=== PATIENT | female | born 1945 | race Caucasian/White ===

== ENCOUNTER 2021-06-16 13:18 | Outpatient (REF) | payer MEDICARE, OTHER, SELFPAY ==
--- NOTE | ~2021-06-16 | MM_ITS ---
EXAMINATION: MM SCREENING DIGITAL BREAST TOMOSYNTHESIS, BILATERAL CLINICAL INFORMATION: Screening. Asymptomatic. The lifetime risk of breast cancer based on the Tyrer-Cuzick Model is 2%. COMPARISON: Mammography: 06/15/2020, 06/05/2019, 05/20/2018 TECHNIQUE: Digital breast tomosynthesis is performed in both the craniocaudal and mediolateral oblique views along with computer-aided detection (CAD). Synthesized 2D images are generated from the tomosynthesis. FINDINGS: There are scattered areas of fibroglandular density (ACR BI-RADS breast composition Category b). There are no significant masses, abnormal calcifications, or other abnormalities. Parenchymal pattern borders on predominantly fatty. There is no significant changes from prior exams. The axilla and skin contours are unremarkable. MM/MM tomosynthesis screening BI IMPRESSION: No mammographic evidence of malignancy. ASSESSMENT: BI-RADS 1: Negative RECOMMENDATION: Routine annual mammography screening. This patient's information was entered into a reminder system with a target due date for their next mammogram.
== END 2021-06-16 13:19 | disposition home or self-care (01) ==
LOC: HO.MAMMO 13:18
PROVIDERS: PCP Internal Medicine; Visit Provider Internal Medicine
DX: Z12.31 Encounter for screening mammogram for malignant neoplasm of breast (principal)
CPT/HCPCS: 77063; 77067

== ENCOUNTER 2022-06-17 13:13 | Outpatient (REF) | payer MEDICARE, OTHER, SELFPAY ==
--- NOTE | ~2022-06-17 | MM_ITS ---
EXAMINATION: MM SCREENING DIGITAL BREAST TOMOSYNTHESIS, BILATERAL CLINICAL INFORMATION: Screening. Asymptomatic. The lifetime risk of breast cancer based on the Tyrer-Cuzick Model is 2.0%. COMPARISON: Mammography: June 16, 2021 and studies dating back to February 15, 2014 TECHNIQUE: Digital breast tomosynthesis is performed in both the craniocaudal and mediolateral oblique views along with computer-aided detection (CAD). Synthesized 2D images are generated from the tomosynthesis. FINDINGS: There are scattered areas of fibroglandular density (ACR BI-RADS breast composition Category b). There are no significant masses, abnormal calcifications, or other abnormalities. MM/MM tomosynthesis screening BI IMPRESSION: No significant changes from prior exam. ASSESSMENT: BI-RADS 1: Negative RECOMMENDATION: Routine annual mammography screening. This patient's information was entered into a reminder system with a target due date for their next mammogram.
== END 2022-06-17 13:14 | disposition home or self-care (01) ==
LOC: HO.MAMMO 13:13
PROVIDERS: Visit Provider Internal Medicine
DX: Z12.31 Encounter for screening mammogram for malignant neoplasm of breast (principal)
CPT/HCPCS: 77063; 77067

== ENCOUNTER 2023-06-21 12:50 | Outpatient (REF) | payer MEDICARE, OTHER, SELFPAY ==
--- NOTE | ~2023-06-21 | MM_ITS ---
EXAMINATION: MM SCREENING DIGITAL BREAST TOMOSYNTHESIS, BILATERAL CLINICAL INFORMATION: Screening. Asymptomatic. COMPARISON: Mammography: This study is compared to prior exams dating back to 2019. TECHNIQUE: Digital breast tomosynthesis is performed in both the craniocaudal and mediolateral oblique views along with computer-aided detection (CAD). Synthesized 2D images are generated from the tomosynthesis. FINDINGS: The breasts are almost entirely fatty (ACR BI-RADS breast composition Category a). There are no significant masses, abnormal calcifications, or other abnormalities. MM/MM tomosynthesis screening BI IMPRESSION: No mammographic evidence of malignancy. ASSESSMENT: BI-RADS BI-RADS 1 - Negative RECOMMENDATION: Routine annual mammography screening. 1 year F/U This examination should not preclude the clinical evaluation of a suspicious palpable abnormality. This patient's information was entered into a reminder system with a target due date for their next mammogram.
== END 2023-06-21 12:51 | disposition home or self-care (01) ==
LOC: HO.MAMMO 12:50
PROVIDERS: PCP Internal Medicine; Visit Provider Internal Medicine
DX: Z12.31 Encounter for screening mammogram for malignant neoplasm of breast (principal)
CPT/HCPCS: 77063; 77067

== ENCOUNTER → 2023-06-21 13:00 | Outpatient (BNV) | payer MEDICARE, OTHER, SELFPAY | PROVIDERS: PCP Internal Medicine; Visit Provider Radiology Diagnostic Radiology | DX: Z12.31 Encounter for screening mammogram for malignant neoplasm of breast (principal) | CPT/HCPCS: 77063; 77067 ==

== ENCOUNTER 2024-07-21 13:20 | Outpatient (REF) | payer MEDICARE, OTHER, SELFPAY ==
--- NOTE | ~2024-07-21 | MM_ITS ---
EXAMINATION: MM SCREENING DIGITAL BREAST TOMOSYNTHESIS, BILATERAL CLINICAL INFORMATION: Screening. Asymptomatic. COMPARISON: Mammography: Comparison is made with available priors TECHNIQUE: Digital breast mammography with tomosynthesis is performed in both the craniocaudal and mediolateral oblique views along with computer-aided detection (CAD). FINDINGS: There are scattered areas of fibroglandular density (ACR BI-RADS breast composition Category b). There are no significant masses, abnormal calcifications, or other abnormalities. MM/MM tomosynthesis screening BI IMPRESSION: No mammographic evidence of malignancy. ASSESSMENT: BI-RADS BI-RADS 1 - Negative RECOMMENDATION: Routine annual mammography screening. 1 year F/U This examination should not preclude the clinical evaluation of a suspicious palpable abnormality. This patient's information was entered into a reminder system with a target due date for their next mammogram. Electronically signed by: Corinna De La Cruz DO 08/02/2024 03:17 PM EDT
== END 2024-07-21 13:21 | disposition home or self-care (01) ==
LOC: HO.MAMMO 13:20
PROVIDERS: PCP Internal Medicine; Visit Provider Internal Medicine
DX: Z12.31 Encounter for screening mammogram for malignant neoplasm of breast (principal)
CPT/HCPCS: 77063; 77067

== ENCOUNTER → 2024-07-21 13:45 | Outpatient (BNV) | payer MEDICARE, SELFPAY | PROVIDERS: PCP Internal Medicine; Visit Provider Internal Medicine | DX: Z12.31 Encounter for screening mammogram for malignant neoplasm of breast (principal) | CPT/HCPCS: 77063; 77067 ==

== ENCOUNTER 2025-07-24 12:35 | Outpatient (REF) | payer MEDICARE, OTHER, SELFPAY ==
--- OUTSIDE RECORDS SUMMARY | 2025-07-20 16:30 | XMS_ITS | Encounter Summary ---
Author Organization [facility] Address [address] [place] [id number] Phone Care Team Providers Care Extras Casting Director Name Role Phone Howard Lorenzo MD Unavailable [phone] Howard Lorenzo MD Primary Care Provider [phone] Sophia Steve DPM, Erik Unavailable Maddi Dinh OD Unavailable Abiola Cedeño MD Unavailable [phone] Reason for Referral * MRI/CAT Scan - Authorized Specialty Diagnoses / Procedures Referred By Marc kirkpatrick Referred To Contact Radiology Diagnoses Left lower quadrant abdominal mass Adrenal mass, left Procedures CT Abdomen/Pelvis Howard Lorenzo MD [address] [place] [address] Phone: tel: fax: [email or web address] Referral ID Status Reason Start Date Expiration Date V isits Requested Visits Authorized [id number] Authorized 07/20/2025 07/23/2026 1 1 Reason for Visit * Reason Comments Follow-up 3 month f/u Abdominal Pain LLQ pain intermitten t for 3 weeksYesterday pain level at 8. Encounter Details Date Type Department Care Team (Latest Contact Info) Description 07/20/2025 4:30 PM EDT Office Visit [facility] Internal Medicine [address] [place] [address] Howard Lorenzo MD [address] [place] [address] [email or web address] Need for prophylactic vaccination and inoculation against influenza (Primary Dx); Type 2 diabetes mellitus with diabetic polyneuropathy, with long-term current use of insulin; Essential hypertension; Nocturia; Left lower quadrant abdominal mass; Adrenal mass, left Social History Tobacco Use Types Packs/Day Years Used Date Smoking Tobacco: Former Cigarettes 1 22 11 965 - 10/25/1993 Passive Smoke Exposure: Past Smokeless Tobacco: Never Comments:quit over 25 years ago Alcohol Use Standard Drinks/Week Comments Not Currently 0 (1 standard drink = 0.6 oz pure alcohol) none since diagnosed with diabetes close to 39 y/o Education Answer Date Recorded Are you interested in more education? Not on felecia e 02/19/2023 Are you concerned about learning? Not on file 02/19/2023 No 02/19/2023 No 02/19/2023 Digital Access Answer Date Recorded No 03/16/2023 No 03/16/2023 Reliable internet access at home? Not on file 03/16/2023 Device with a working camera? Not on file Intimate Partner Violence Answer Date R ecorded Denied Basic Needs Not on file 04/23/2025 In the past 12 months have y ou been in a relationship with a person who hurts, threatens, or tries to control you? No 04/23/2025 Worried food would run out Not on file 04/23 In the past 12 months have y ou been in a relationship with a person who hurts, threatens, or tries to control you? No 04/23/2025 Comments No Sex and Gender Information Value Date Recorded Sex Assigned at Female 01/12/2024 10:17 AM EDT Legal Sex Female 10:09 PM EDT Gender Identity Female 01/12/2024 10:17 AM EDT Sexual Orientation Straight 03/05/2022 7: 25 PM EDT documented as of this encounter Last Filed Vital Signs Vital Sign Reading Time Taken Comments Blood Pressure 145/74 07/20/2025 5:52 PM EDT Pulse 73 07/20/2025 4:42 PM EDT Temperature 37.4 C (99.4 F) 07/20/2025 4:42 PM EDT Respiratory Rate 28 07/20/2025 4:42 PM EDT Oxygen Saturation 99% 07/20/2025 4:42 PM EDT Inhaled Oxygen Concentration - - Weight 65.2 kg (143 lb 12.8 oz) 07/20/2025 4:42 PM EDT Height 154.3 cm (5' 0.75 ) 07/20/2025 4:42 PM ED T Body Mass Index 27.4 07/20/2025 4:42 PM EDT documented in this encounter Progress Notes * Howard Lorenzo MD - 07/20/2025 4:30 PM EDT Subjective Vida Bass is a 80 y.o. female. History of Present Illness HPI: Patient enters for a follow up visit she has Diabetes Type II and monitors her glucose as directed. Her recent hemoglobin A1C was 8.2. She has lost 8 pounds in 1 years. She has been having some left lower quadrant pain for the past weeks. The pain comes and goes. No blood in her stool. She had a fall outside. She doesn't fall inside. She has a walker but doesn't use it. Her blood pressure was elevated today in the office 145/74. No headaches or chest pains. She had a 2.2cm left adrenal adenoma seen on a CT scan last year. It showed bronchiectasis in her right lower lobe. She has a solid 4mm pulmonary nodule in left lower lobe and right upper lobe. She has a 3mm nodule in the right lower lobe and left upper lobe. She also has a 6mm ground glass nodule in the left lower lobe. She has a 5mm ground glass nodule in the left lower lobe. Current Outpatient Medications Ordered in [facility] Medication Sig blood-glucose meter kit 1 each by Other route daily. Use as instructed Indications: Freestyle Lite glucometer FREESTYLE CARSON 2 READER 1 each by Miscellaneous route as needed for other (free text field). F/b Leonora Blake NP from [facility] diabetes center. FREESTYLE CARSON 2 SENSOR kit Inject 1 each under the skin every 14 (fourteen) days. DX:E11.42 insulin pen needles, disposable, 32 gauge x 5/32 Ndle 1 each by Miscellaneous route as needed. DX:E11.42 naproxen sodium (ALEVE) 220 MG tablet Take 2 tablets by mouth 2 (two) times a day as needed. simvastatin (ZOCOR) 40 MG tablet Take 1 tablet (40 mg total) by mouth nightly at bedtime. TRADJENTA 5 mg Tab Take 1 tablet (5 mg total) by mouth daily. TRESIBA FLEXTOUCH U-100 injection pen Inject up to 20 units daily DX:E11.42 alcohol PadM use tid for insulin and testing (Patient not taking: Reported on 07/20/2025) Review of Systems Denies headaches/chest pains Objective Physical Exam BP (!) 145/74 (BP Location: Right arm, Patient Position: Sitting, Cuff Size: Medium) Pulse 73 Temp 37.4 ??C (99.4 ??F) (Oral) Resp 28 Ht 154.3 cm (5' 0.75 ) Wt 65.2 kg (143 lb 12.8 oz) LMP (LMP Unknown) SpO2 99% BMI 27.40 kg/m?? CONSTITUTIONAL: Appears well- developed and well nourished. Cooperative, patient is alert. HEENT:PERRTL, EOM intact, fundi benign, TM's clear, throat clear. NECK: supple, no thyroid megaly, no adenopathy. LUNGS: clear to A&P,no wheezing/rhonichi/rales. HEART: RRR S1S2 without murmurs, rubs or gallops. ABDOMEN: bowel sounds: normal, soft non tender without masses. Mild tenderness left lower quadrant to palpation. No rebound tenderness. EXTREMITIES: without edema, clubbing or cyanosis. Assessment & Plan 1. Type 2 diabetes mellitus with diabetic polyneuropathy, with long-term current use of insulin cont med - Comprehensive metabolic panel - CBC and differential - Hemoglobin A1c - TSH with reflex - Urinalysis w/reflex Urine Culture 3. Essential hypertension pt to monitor bp at home and call with readings. She stopped taking Losartan several weeks ago. - Comprehensive metabolic panel - CBC and differential - TSH with reflex - Urinalysis w/reflex Urine Culture 4. Nocturia - Urinalysis w/reflex Urine Culture 5. Left lower quadrant abdominal mass were going to get lab work and a CT scan - Lipase - CT Abdomen/Pelvis 6. Adrenal mass, left - CT Abdomen/Pelvis I obtained verbal consent from the patient or their proxy to record this visit for purposes of producing a draft of the encounter documentation. documented in this encounter Plan of Treatment Upcoming Encounters Date Type Department Care Team (Late st Contact Info) Description 09/29/2025 1:30 PM EST Appointment [facility], [address] [address] Howard Lorenzo MD [address] [place] [address] 11/14/2025 1:30 PM EST Office Visit [facility] Internal Medicine [address] [place] [address] Howard Lorenzo MD [address] [place] [address] 11/15/2025 12:30 PM EST Office Visit [facility] [address] [place] [phone] Leonora Ro CNP [address] [place] [phone] 03/11/2026 2:00 PM EDT Office Visit [facility] Endocrinology [place] [address] [place] [phone] Carline Chavez MD [address] [place] [phone] Scheduled Orders Name Type Priority Associated Diagnoses Orde r Schedule CT Abdomen/Pelvis Imaging Routine Left lower quadrant abdominal mass Adrenal mass, left Expected: 08/03/2025, Expires: 10/19/2025 documented as of this encounter Results * (ABNORMAL) Urinalysis w/reflex Urine Culture (07/23/2025 9:57 AM EDT) COLOR STRAW(A) Yellow [facility] CLARITY Clear [facility] GLUCOSE Negative Negative [facility] BILI Negative Negative [facility] KETONES Negative Negative [facility] SPECIFIC GRAVITY 1.010 1.005 - 1.030 [facility] BLOOD Negative Negative [facility] PH 7.0 5.0 - 8.0 [facility] Protein-UA Negative Negative [facility] NITRITE Positive(A) Negative [facility] Leukocyte esterase, ur 1+(A) Negative [facility] Urine (Urine) 07/23/2025 9:5 7 AM EDT 07/23/2025 10:02 AM EDT us Howard Lorenzo MD URINE ORDERABLES Final Result Performing Organization Address [facility] Co de Phone Number [address] [address] * Lipase (07/23/2025 9:54 AM EDT) LIPASE 17 16 - 63 U/L [facility] Blood 07/23/2025 9:54 AM EDT 07/23/2025 9:57 AM EDT us Howard Lorenzo MD LAB BLOOD ORDERABLES Final Re sult Performing Organization Address [facility]/ZIP Co de Phone Number [address] [address] * TSH with reflex (07/23/2025 9:54 AM EDT) TSH 1.45 0.27 - 4.20 uIU/mL [facility] Blood 07/23/2025 9:54 AM EDT 07/23/2025 9:57 AM EDT us Howard Lorenzo MD LAB BLOOD ORDERABLES Final Re sult [address] [address] * (ABNORMAL) Hemoglobin A1c (07/23/2025 9:54 AM EDT) HEMOGLOBIN A1C 8.1(H) 4.3 - 5.8 % [facility] Blood 07/23/2025 9:54 AM EDT 07/23/2025 9:57 AM EDT us Howard Lorenzo MD LAB BLOOD ORDERABLES Final Re sult Performing Organization Address City/[facility]/ZIP Co de Phone Number [address] [address] * CBC and differential (07/23/2025 9:54 AM EDT) WBC 9.96 4.00 - 11.00 K/uL [facility] RBC 4.60 4.00 - 5.20 M/uL [facility] HGB 13.6 12.0 - 16.0 g/dL [facility] HCT 39.8 36.0 - 46.0 % [facility] PLT 299 150 - 450 K/uL [facility] MCV 86.5 80.0 - 100.0 fL [facility] MCH 29.6 27.0 - 31.0 pg [facility] MCHC 34.2 32.0 - 36.0 g/dL [facility] RDW 12.8 11.5 - 14.5 % [facility] MPV 9.9 8.4 - 12.0 fL [facility] NRBC 0.00 0.00 /100 WBCs [facility] ABSOLUTE NRBC 0.00 0.00 K/uL [facility] DIFF METHOD Auto [facility] NEUTS 66.6 48.0 - 76.0 % [facility] LYMPHS 20.9 18.0 - 41.0 % [facility] MONOS 8.9 4.0 - 11.0 % [facility] EOS 2.0 0.0 - 5.0 % [facility] BASOS 1.3 0.0 - 1.5 % [facility] Granulocytes, immature (%) 0.3 0.0 - 0.9 % [facility] ABSOLUTE NEUTS 6.63 1.92 - 7.60 K/uL [facility] ABSOLUTE LYMPHS 2.08 0.72 - 4.10 K/uL [facility] ABSOLUTE MONOS 0.89 0.16 - 1.10 K/uL [facility] ABSOLUTE EOS 0.20 0.00 - 0.50 K/uL [facility] ABSOLUTE BASOS 0.13 0.00 - 0.15 K/uL [facility] Granulocytes, immature 0.03 0.00 - 0.09 K/uL [facility] Blood 07/23/2025 9:54 AM EDT 07/23/2025 9:57 AM EDT us Howard Lorenzo MD LAB BLOOD ORDERABLES Final Re sult [address] [address] * (ABNORMAL) Comprehensive metabolic panel (07/23/2025 9:54 AM EDT) SODIUM 139 133 - 146 mmol/L [facility] POTASSIUM 4.2 3.3 - 5.1 mmol/L [facility] CHLORIDE 101 96 - 108 mmol/L [facility] CO2 26 21 - 35 mmol/L [facility] BUN 10 6 - 19 mg/dL [facility] CREATININE 0.60 0.5 - 1.5 mg/dL [facility] GLUCOSE 130(H) 70 - 99 mg/dL [facility] ALBUMIN 4.4 3.9 - 4.8 g/dL [facility] TOTAL PROTEIN 7.0 6.5 - 8.0 g/dL [facility] CALCIUM 9.9 8.4 - 10.3 mg/dL [facility] ALKALINE PHOSPHATASE 76 39 - 117 U/L [facility] TOTAL BILIRUBIN 0.4 0.0 - 1.2 mg/dL [facility] AST 18 0 - 37 U/L [facility] ALT 6 0 - 40 U/L [facility] GLOBULIN 2.6 1 - 4.8 g/dL [facility] EGFR 90 >59 mL/min/1.7 3m2 [facility] Comment:Estimated glomerular filtration rate calculated using the CKD-EPI refit equation. ANION GAP 16 10 - 20 mmol/L [facility] Blood 07/23/2025 9:54 AM EDT 07/23/2025 9:57 AM EDT us Howard Lorenzo MD LAB BLOOD ORDERABLES Final Re sult [facility] [address] [place] [address] documented in this encounter Visit Diagnoses Diagnosis Need for prophylactic vaccination and inoculation against influenza- Primary Type 2 diabetes mellitus with diabetic polyneuropathy, with long-term current use of insulin Essential hypertension Unspecified essential hypertension Nocturia Left lower quadrant abdominal mass Abdominal or pelvic swelling, mass, or lump, left lower quadrant Adrenal mass, left Unspecified disorder of adrenal glands documented in this encounter Additional Health Concerns Assessment Noted Time PHQ-9 Depression Total Score: 15 025 3:51 PM EDT PHQ-2 Depression Total Score: 3 07/20/20 25 3:51 PM EDT documented as of this encounter Care Teams Extras Casting Director Relationship Specialty Start Date End Date Howard Lorenzo MD [address] [place] [address] [email or web address] PCP - General Internal Medicine 09/13/17 Howard Lorenzo MD [address] [place] [address] Insurance Assigned Provider 01/29/24 Anibal Cortes DPM [address] [place] [id number] Podiatry 04/29/20 Maddi Dinh OD [address] [place] [phone] Optometry 04/29/20 Abiola Cedeño MD [address] [place] [address], [address] [place] [address] Internal Medicine 12/14/22 documented as of this encounter Additional Source Comments The information contained in this document represents components of the legal health record. It is not the complete legal health record.[facility]
--- OUTSIDE RECORDS SUMMARY | 2025-07-23 09:57 | XMS_ITS | Encounter Summary ---
Author Organization [facility] Address Formerly [facility], [facility] [employer] [facility] [address] [place] [address] Phone Care Team Providers Care Workers Compensation Paralegal Name Role Phone Howard Lorenzo MD Unavailable Howard Lorenzo MD Primary Care Provider [phone] Sophia Steve DPM, Erik Unavailable Maddi Dinh OD Unavailable Abiola Cedeño MD Unavailable [phone] Encounter Details Date Type Department Care Team (Latest Contact Info) Description 07/23/2025 9:57 AM EDT - 07/23/2025 11:59 PM EDT Hospital Encounter [facility] [address] [place], [place] [phone] Howard Lorenzo MD [address] [place], [place] [phone] [email or web address] Discharge Disposition: Home or Self Care Social History Tobacco Use Types Packs/Day Years Used Date Smoking Tobacco: Former Cigarettes 1 29 1 965 - 10/25/1993 Passive Smoke Exposure: Past [...] PM EDT documented as of this encounter Medications at Time of Discharge alcohol PadM use tid for insulin and testing 03/22/20 14 blood-glucose meter kitIndications:Freestyle Lite glucometer 1 each by Other route daily. Use as instructed Indications: Freestyle Lite glucometer FREESTYLE CARSON 2 READER 1 each by Miscellaneous route as needed for other (free text field). F/b Leonora Blake NP from [facility] diabetes center. 10/12/20 22 FREESTYLE CARSON 2 SENSOR kit Inject 1 each under the skin every 14 (fourteen) days. DX:E11.42 2 kit 3 02/09/20 24 insulin pen needles, disposable, 32 gauge x 532 NdleIndications:Type 2 diabetes mellitus with diabetic polyneuropathy, with long-term current use of insulin 1 each by Miscellaneous route as needed. DX:E11.42 30 each 11 05/28/20 22 naproxen sodium (ALEVE) 220 MG tablet Take 2 tablets by mouth 2 (two) times a day as needed. simvastatin (ZOCOR) 40 MG tabletIndications:Pure hypercholesterolemia Take 1 tablet (40 mg total) by mouth nightly at bedtime. 90 tablet 3 04/23/20 TRADJENTA 5 mg TabIndications:Type 2 diabetes mellitus with diabetic polyneuropathy, with long-term current use of insulin Take 1 tablet (5 mg total) by mouth daily. 90 tablet 3 05/14/20 TRESIBA FLEXTOUCH U-100 injection penIndications:Type 2 diabetes mellitus with diabetic polyneuropathy, with long-term current use of insulin Inject up to 20 units daily DX:E11.42 30 mL 3 05/14/20 documented as of this encounter Plan of Treatment Upcoming Encounters Date Type Department Care Team (Late st Contact Info) Description 09/29/2025 1:30 PM EST Appointment [facility], [address] [address] Howard Lorenzo MD [address] [place] [address] 11/14/2025 1:30 PM EST Office Visit [facility] [place] Internal Medicine [address] [place] [address] Howard Lorenzo MD [address] [place] [address] 11/15/2025 12:30 PM EST Office Visit [facility] [address] [place] [address] Leonora Ro CNP [address] [address] [email or web address] 03/11/2026 2:00 PM EDT Office Visit [facility] Endocrinology [place] [address] [place] [phone] Carline Chavez MD [address] [place] [address] [address] [place] [address] [email or web address] documented as of this encounter Procedures Procedure Name Priority Date/Time Associated Diagnosis Comments URINALYSIS W/REFLEX URINE CULTURE Routine 07/23/2025 9:57 AM EDT Type 2 diabetes mellitus with diabetic polyneuropathy, with long-term current use of insulin Essential hypertension Nocturia URINE SEDIMENT Routine 07/23/2025 9:57 AM EDT COMPREHENSIVE METABOLIC PANEL Routine 07/23/2025 9:54 AM EDT Type 2 diabetes mellitus with diabetic polyneuropathy, with long-term current use of insulin Essential hypertension TSH WITH REFLEX Routine 07/23/2025 9:54 AM EDT Type 2 diabetes mellitus with diabetic polyneuropathy, with long-term current use of insulin Essential hypertension CBC AND DIFFERENTIAL Routine 07/23/2025 9:54 AM EDT Type 2 diabetes mellitus with diabetic polyneuropathy, with long-term current use of insulin Essential hypertension LIPASE Routine 07/23/2025 9:54 AM EDT Left lower quadrant abdominal mass HEMOGLOBIN A1C Routine 07/23/2025 9:54 AM EDT Type 2 diabetes mellitus with diabetic polyneuropathy, with long-term current use of insulin documented in this encounter Results * (ABNORMAL) Urine sediment (07/23/2025 9:57 AM EDT) WBC 5-10(A) NONE SEEN /hpf [facility] RBC 0-2(A) NONE SEEN /hpf [facility] URINE EPITHELIAL 0-4(A) NONE SEEN [facility] MUCUS Trace(A) NONE SEEN /hpf [facility] BACTERIA 1+(A) NONE SEEN /hpf [facility] 07/23/2025 9:57 AM EDT 07/23/2025 10:02 AM EDT us Howard Lorenzo MD URINE ORDERABLES Final Result [address] [address] * (ABNORMAL) Urinalysis w/reflex Urine Culture (07/23/2025 9:57 AM EDT) COLOR STRAW(A) Yellow [facility] CLARITY Clear [facility] GLUCOSE Negative Negative [facility] BILI Negative Negative [facility] KETONES Negative Negative [facility] SPECIFIC GRAVITY 1.010 1.005 - 1.030 [facility] BLOOD Negative Negative [facility] PH 7.0 5.0 - 8.0 [facility] Protein-UA Negative Negative [facility] NITRITE Positive(A) Negative [facility] Leukocyte esterase, ur 1+(A) Negative [facility] Urine (Urine) 07/23/2025 9:5 7 AM EDT 07/23/2025 10:02 AM EDT us Howard Lorenzo MD URINE ORDERABLES Final Result [address] [address] * (ABNORMAL) Comprehensive metabolic panel (07/23/2025 9:54 AM EDT) SODIUM 139 133 - 146 mmol/L [facility] POTASSIUM 4.2 3.3 - 5.1 mmol/L [facility] CHLORIDE 101 96 - 108 mmol/L [facility] CO2 26 21 - 35 mmol/L [facility] BUN 10 6 - 19 mg/dL [facility] CREATININE 0.60 0.5 - 1.5 mg/dL [facility] GLUCOSE 130(H) 70 - 99 mg/dL [facility] ALBUMIN 4.4 3.9 - 4.8 g/dL [facility] TOTAL PROTEIN 7.0 6.5 - 8.0 g/dL [facility] CALCIUM 9.9 8.4 - 10.3 mg/dL [facility] ALKALINE PHOSPHATASE 76 39 - 117 U/L [facility] TOTAL BILIRUBIN 0.4 0.0 - 1.2 mg/dL [facility] AST 18 0 - 37 U/L [facility] ALT 6 0 - 40 U/L [facility] GLOBULIN 2.6 1 - 4.8 g/dL [facility] EGFR 90 >59 mL/min/1.7 3m2 [facility] Comment:Estimated glomerular filtration rate calculated using the CKD-EPI refit equation. ANION GAP 16 10 - 20 mmol/L [facility] Blood 07/23/2025 9:54 AM EDT 07/23/2025 9:57 AM EDT us Howard Lorenzo MD LAB BLOOD ORDERABLES Final Re sult [facility] [address] [place] [address] * CBC and differential (07/23/2025 9:54 AM EDT) WBC 9.96 4.00 - 11.00 K/uL [facility] RBC 4.60 4.00 - 5.20 M/uL [facility] HGB 13.6 12.0 - 16.0 g/dL [facility] HCT 39.8 36.0 - 46.0 % [facility] PLT 299 150 - 450 K/uL [facility] MCV 86.5 80.0 - 100.0 fL [facility] MCH 29.6 27.0 - 31.0 pg [facility] MCHC 34.2 32.0 - 36.0 g/dL [facility] RDW 12.8 11.5 - 14.5 % [facility] MPV 9.9 8.4 - 12.0 fL [facility] NRBC 0.00 0.00 /100 WBCs [facility] ABSOLUTE NRBC 0.00 0.00 K/uL [facility] DIFF METHOD Auto [facility] NEUTS 66.6 48.0 - 76.0 % [facility] LYMPHS 20.9 18.0 - 41.0 % [facility] MONOS 8.9 4.0 - 11.0 % [facility] EOS 2.0 0.0 - 5.0 % [facility] BASOS 1.3 0.0 - 1.5 % [facility] Granulocytes, immature (%) 0.3 0.0 - 0.9 % [facility] ABSOLUTE NEUTS 6.63 1.92 - 7.60 K/uL [facility] ABSOLUTE LYMPHS 2.08 0.72 - 4.10 K/uL [facility] ABSOLUTE MONOS 0.89 0.16 - 1.10 K/uL [facility] ABSOLUTE EOS 0.20 0.00 - 0.50 K/uL [facility] ABSOLUTE BASOS 0.13 0.00 - 0.15 K/uL [facility] Granulocytes, immature 0.03 0.00 - 0.09 K/uL [facility] Blood 07/23/2025 9:54 AM EDT 07/23/2025 9:57 AM EDT us Howadr Lorenzo MD LAB BLOOD ORDERABLES Final Re sult [address] [address] * (ABNORMAL) Hemoglobin A1c (07/23/2025 9:54 AM EDT) HEMOGLOBIN A1C 8.1(H) 4.3 - 5.8 % [facility] Blood 07/23/2025 9:54 AM EDT 07/23/2025 9:57 AM EDT us Howard Lorenzo MD LAB BLOOD ORDERABLES Final Re sult [address] [address] * TSH with reflex (07/23/2025 9:54 AM EDT) TSH 1.45 0.27 - 4.20 uIU/mL [facility] Blood 07/23/2025 9:54 AM EDT 07/23/2025 9:57 AM EDT us Howard Lorenzo MD LAB BLOOD ORDERABLES Final Re sult Performing Organization Address City/[facility]/ZIP Co de Phone Number [address] [address] * Lipase (07/23/2025 9:54 AM EDT) LIPASE 17 16 - 63 U/L [facility] Blood 07/23/2025 9:54 AM EDT 07/23/2025 9:57 AM EDT us Howard Lorenzo MD LAB BLOOD ORDERABLES Final Re sult Performing Organization Address [facility] Co de Phone Number [address] [address] documented in this encounter Visit Diagnoses Diagnosis Left lower quadrant abdominal mass Abdominal or pelvic swelling, mass, or lump, left lower quadrant Type 2 diabetes mellitus with diabetic polyneuropathy, with long-term current use of insulin Essential hypertension Unspecified essential hypertension Nocturia documented in this encounter Additional Health Concerns Assessment Noted Time PHQ-9 Depression Total Score: 15 025 3:51 PM EDT PHQ-2 Depression Total Score: 3 07/20/20 25 3:51 PM EDT documented as of this encounter Care Teams Workers Compensation Paralegal Relationship Specialty Start Date End Date Howard Lorenzo MD [address] [place] [address] [email or web address] PCP - General Internal Medicine 09/13/17 Howard Lorenzo MD [address] [place] [address] Insurance Assigned Provider 01/29/24 Anibal Cortes DPM [address] [place] [address] Podiatry 04/29/20 Maddi Dinh OD [address] [place] [address] Optometry 04/29/20 Abiola Cedeño MD [address] [place] [address], 1[address] [place] [address] [email or web address] Internal Medicine 12/14/22 documented as of this encounter Additional Source Comments The information contained in this document represents components of the legal health record. It is not the complete legal health record.[facility]
--- OUTSIDE RECORDS SUMMARY | 2025-07-24 13:42 | XMS_ITS | Encounter Summary ---
Author Organization [facility] Address Replaced by [facility] [employer] [address] [address] Phone Care Team Providers Care Photocopy Operator Name Role Phone Howard Lorenzo MD Unavailable [phone] Howard Lorenzo MD Primary Care Provider [phone] Sophia Steve DPM, Erik Unavailable Maddi Dinh OD Unavailable Abiola Cedeño MD Unavailable [phone] Encounter Details Date Type Department Care Team (Late st Contact Info) Description 11/10/2024 Procedure Pass [facility], [address] [address] Social History Tobacco Use Types Packs/Day Years [...] Intimate Partner Violence Answer Date R ecorded Are you denied basic needs s uch as food, clothing, or medical care? No 01/27/2024 In the past 12 months have y ou been in a relationship with a person who hurts, threatens, or tries to control you? No 01/27/2024 Are you denied basic needs s uch as food, clothing, or medical care? No 01/27/2024 In the past 12 months have y ou been in a relationship with a person who hurts, threatens, or tries to control you? No 01/27/2024 Comments No Sex and Gender Information Value Date Recorded Sex Assigned at Female 01/12/2024 10:17 AM EDT Legal Sex Female 10:09 PM EDT Gender Identity Female 01/12/2024 10:17 AM EDT Sexual Orientation Straight 03/05/2022 7: 25 PM EDT documented as of this encounter Plan of Treatment Upcoming Encounters Date Type Department Care Team (Late st Contact Info) Description 09/29/2025 1:30 PM EST Appointment [address] [address] Howard Lorenzo MD [address] [place] [address] 11/14/2025 1:30 PM EST Office Visit [facility] Internal Medicine [address] [place] [address] Howard Lorenzo MD [address] [place] [address] 11/15/2025 12:30 PM EST Office Visit [facility] [address] [place] [address] Leonora Ro CNP 22 [facility], 1st [place] [address] 03/11/2026 2:00 PM EDT Office Visit [facility] Endocrinology [place] [address] [place] [address] Carline Chavez MD [address] [address] documented as of this encounter Visit Diagnoses Not on filedocumented in this encounter Additional Health Concerns Assessment Noted Time PHQ-2 Depression Total Score: 0 01/27/20 24 2:32 PM EDT documented as of this encounter Care Teams Photocopy Operator Relationship Specialty Start Date End Date Howard Lorenzo MD [address] [place] [address] PCP - General Internal Medicine 09/13/17 Howard Lorenzo MD [address] [place] [address] Insurance Assigned Provider 01/29/24 Anibal Cortes DPM [address] [place] [address] Podiatry 04/29/20 Maddi Dinh OD [address] [place] [address] Optometry 04/29/20 Abiola Cedeño MD [address] [address] Internal Medicine 12/14/22 documented as of this encounter Additional Source Comments The information contained in this document represents components of the legal health record. It is not the complete legal health record.[facility]
--- OUTSIDE RECORDS SUMMARY | 2025-07-24 13:42 | XMS_ITS | Encounter Summary ---
Author Organization [facility] Address [facility] [address] [address] Phone Care Team Providers Care Pest Control Operator Name Role Phone Howard Lorenzo MD Unavailable [phone] Howard Lorenzo MD Primary Care Provider [phone] Sophia Steve DPM, Erik Unavailable Maddi Dinh OD Unavailable Abiola Cedeño MD Unavailable [phone] Encounter Details Date Type Department Care Team (Late st Contact Info) Description 01/27/2024 Procedure Pass [facility], [address] [address] Social History Tobacco Use Types Packs/Day Years [...] Info) Description 09/29/2025 1:30 PM EST Appointment [address] [address] Howard Lorenzo MD [address] [place] [address] 11/14/2025 1:30 PM EST Office Visit [facility] Internal Medicine [address] [place] [address] Howard Lorenzo MD [address] [place] [address] 11/15/2025 12:30 PM EST Office Visit [facility] [address] [place] [address] Leonora Ro CNP 22 [facility], 1st [place] [address] 03/11/2026 2:00 PM EDT Office Visit [facility] Endocrinology [place] [address] [place] [address] Carline Chavez MD [address] [address] documented as of this encounter Visit Diagnoses Not on filedocumented in this encounter Additional Health Concerns Infection Onset Date Last Indicated Resolved Time CoV-Risk 04/28/2024 04/28/2024 05/09/2024 1:22 AM EDT Assessment Noted Time PHQ-2 Depression Total Score: 0 01/27/20 2:32 PM EDT documented as of this encounter Care Teams Pest Control Operator Relationship Specialty Start Date End Date Howard Lorenzo MD [address] [place] [address] PCP - General Internal Medicine 09/13/17 Howard Lorenzo MD [address] [place] [address] [email or web address] Insurance Assigned Provider 01/29/24 Anibal Cortes DPM [address] [place] [address] Podiatry 04/29/20 Maddi Dinh OD [address] [place] [address] Optometry 04/29/20 Abiola Cedeño MD [address] [place] [address] [email or web address] Internal Medicine 12/14/22 documented as of this encounter Additional Source Comments The information contained in this document represents components of the legal health record. It is not the complete legal health record.[facility]
--- OUTSIDE RECORDS SUMMARY | 2025-07-24 13:42 | XMS_ITS | Encounter Summary ---
Author Organization [facility] Address [facility] [employer] [address] [address] Phone Care Team Providers Care Resaw Tailer Name Role Phone Howard Lorenzo MD Unavailable [phone] Howard Lorenzo MD Primary Care Provider [phone] Sophia Steve DPM, Erik Unavailable [phone] Maddi Dinh OD Unavailable Abiola Cedeño MD Unavailable [phone] Encounter Details Date Type Department Care Team (Late st Contact Info) Description 06/03/2023 Procedure Pass [facility] Admitting Dept Virtual Department [address] [place] [address] Social History Tobacco Use Types Packs/Day Years Used Date Smoking Tobacco: Former Cigarettes 1 29 1 965 - 10/25/1993 Smokeless Tobacco: Never Comments:quit over 25 years ago Alcohol Use Standard Drinks/Week Comments Not Currently 0 (1 standard drink = 0.6 oz pure alcohol) none since diagnosed with diabetes Education Answer Date Recorded Are you interested in more education? Not on felecia e 02/19/2023 Are you concerned about learning? Not on file 02/19/2023 No 02/19/2023 No 02/19/2023 Digital Access Answer Date Recorded No 03/16/2023 No 03/16/2023 Reliable internet access at home? Not on file 03/16/2023 Device with a working camera? Not on file Comments No Sex and Gender Information Value Date Recorded Sex Assigned at Female 01/12/2024 10:17 AM EDT Legal Sex Female 10:09 PM EDT Gender Identity Female 01/12/2024 10:17 AM EDT Sexual Orientation Straight 03/05/2022 7: 25 PM EDT documented as of this encounter Plan of Treatment Upcoming Encounters Date Type Department Care Team (Late st Contact Info) Description 09/29/2025 1:30 PM EST Appointment [facility] [address] [place] [address] Howard Lorenzo MD [address] [place] [address] 11/14/2025 1:30 PM EST Office Visit [facility] Internal Medicine [address] [place] [address] Howard Lorenzo MD [address] [place] [address] 11/15/2025 12:30 PM EST Office Visit [facility] [address] [place] [address] Leonora Ro CNP [address] [place] [email or web address] 03/11/2026 2:00 PM EDT Office Visit [facility] Endocrinology [place] [address] [place] [address] Carline Chavez MD [address] [place] [address] documented as of this encounter Visit Diagnoses Not on filedocumented in this encounter Additional Health Concerns Infection Onset Date Last Indicated Resolved Time CoV-Risk 04/28/2024 04/28/2024 05/09/2024 1:22 AM EDT Assessment Noted Time PHQ-2 Depression Total Score: 0 01/22/20 23 1:21 PM EDT documented as of this encounter Care Teams Resaw Tailer Relationship Specialty Start Date End Date Howard Lorenzo MD [address] [place] [address] [email or web address] PCP - General Internal Medicine 09/13/17 Howard Lorenzo MD [address] [place] [address] Insurance Assigned Provider 01/29/24 Anibal Cortes V DPM [address] [place] [address] Podiatry 04/29/20 Maddi Dinh OD [address] [place] [address] Optometry 04/29/20 Abiola Cedeño MD 22 [facility], 1st [place] [address] Internal Medicine 12/14/22 documented as of this encounter Additional Source Comments The information contained in this document represents components of the legal health record. It is not the complete legal health record.[facility]
--- OUTSIDE RECORDS SUMMARY | 2025-07-24 13:42 | XMS_ITS | Encounter Summary ---
Author Organization [facility] Address [facility] [employer] [address] [address] Phone Care Team Providers Care Centrifugal Separator Name Role Phone Howard Lorenzo MD Unavailable [phone] Howard Lorenzo MD Primary Care Provider [phone] Sophia Steve DPM, Erik Unavailable [phone] Maddi Dinh OD Unavailable Abiola Cedeño MD Unavailable [phone] Encounter Details Date Type Department Care Team (Late st Contact Info) Description 08/16/2024 Procedure Pass [facility] - [address] [address] Social History Tobacco Use Types Packs/Day Years [...] Info) Description 09/29/2025 1:30 PM EST Appointment [address] [address] Howard Lorenzo MD [address] [place] [address] 11/14/2025 1:30 PM EST Office Visit [facility] Internal Medicine [address] [place] [address] Howard Lorenzo MD [address] [place] [address] 11/15/2025 12:30 PM EST Office Visit [facility] [address] [place] [address] Leonora Ro CNP 22 [facility], 1st [place] [address] 03/11/2026 2:00 PM EDT Office Visit [facility] Endocrinology [place] [address] [place] [phone] Carline Chavez MD [address] [address] documented as of this encounter Visit Diagnoses Not on filedocumented in this encounter Additional Health Concerns Assessment Noted Time PHQ-2 Depression Total Score: 0 01/27/20 24 2:32 PM EDT documented as of this encounter Care Teams Centrifugal Separator Relationship Specialty Start Date End Date Howard Lorenzo MD [address] [place] [address] PCP - General Internal Medicine 09/13/17 Howard Lorenzo MD [address] [place] [address] Insurance Assigned Provider 01/29/24 Anibal Cortes DPM [address] [place] [address] Podiatry 04/29/20 Maddi Dinh OD [address] [place] [address] Optometry 04/29/20 Abiola Cedeño MD [address] [address] Internal Medicine 12/14/22 documented as of this encounter Additional Source Comments The information contained in this document represents components of the legal health record. It is not the complete legal health record.[facility]
--- OUTSIDE RECORDS SUMMARY | 2025-07-24 13:43 | XMS_ITS | Clinical Summary ---
Author Organization [facility] Address [address] [place] [id number] Phone Care Team Providers Care Foundry Worker Apprentice Name Role Phone Howard Lorenzo MD Unavailable [phone] Howard Lorenzo MD Primary Care Provider [phone] Sophia Steve DPM, Erik Unavailable [phone] Maddi Dinh OD Unavailable Abiola Cedeño MD Unavailable Allergies Active Allergy Reactions Criticality Noted Date Comments Donepezil Diarrhea 04/23/2025 Ciprofloxacin GI Upset 09/08/2017 Metformin Other (See Comments) 09/08/2017 Dyspnea Atorvastatin Other (See Comments) 09/08/2017 Myalgia Lisinopril Cough 09/08/2017 Hydroxychloroquine Hives 09/08/2017 Sulfa (Sulfonamide Antibiotics) Rash Low 08/25 Medications alcohol PadM use tid for insulin and testing 2013 Active insulin pen needles, disposable, 32 gauge x 32 NdleIndications:Type 2 diabetes mellitus with diabetic polyneuropathy, with long-term current use of insulin 1 each by Miscellaneous route as needed. DX:E11.42 30 each 11 2021 Active FREESTYLE ANASTASIA 2 READER 1 each by Miscellaneous route as needed for other (free text field). F/b Leonora Blake NP from [facility] diabetes center. 2021 Active FREESTYLE ANASTASIA 2 SENSOR kit Inject 1 each under the skin every 14 (fourteen) days. DX:E11.42 2 kit 3 2023 Active naproxen sodium (ALEVE) 220 MG tablet Take 2 tablets by mouth 2 (two) times a day as needed. Active blood-glucose meter kitIndications:Freesty le Lite glucometer 1 each by Other route daily. Use as instructed Indications: Freestyle Lite glucometer Active simvastatin (ZOCOR) 40 MG tabletIndications:Pure hypercholesterolemia Take 1 tablet (40 mg total) by mouth nightly at bedtime. 90 tablet 3 2024 Active TRADJENTA 5 mg TabIndications:Type 2 diabetes mellitus with diabetic polyneuropathy, with long-term current use of insulin Take 1 tablet (5 mg total) by mouth daily. 90 tablet 3 2024 Active TRESIBA FLEXTOUCH U-100 injection penIndications:Type 2 diabetes mellitus with diabetic polyneuropathy, with long-term current use of insulin Inject up to 20 units daily DX:E11.42 30 mL 3 2024 Active aspirin 81 mg chewable tablet Take 81 mg by mouth daily. 07/20 Discontinued( No longer taking) cholecalciferol (VITAMIN D3) 2,000 unit tablet Take 2,000 Units by mouth daily. 07/20 Discontinued( No longer taking) calcium carb and citrate-vitD3 (CITRACAL-D3 SLOW RELEASE) 600 mg-12.5 mcg (500 unit) TbER Take 1 tablet by mouth daily. 07/20 Discontinued( No longer taking) losartan (COZAAR) 50 MG tabletIndications:Esse ntial hypertension Take 1 tablet (50 mg total) by mouth daily. 90 tablet 3 07/20 Discontinued Active Problems Problem Noted Date Diagnosed Date Adrenal nodule 08/16/2024 Assessment & Plan (03/08/2025 1:18 PM EDT): The patient has a left adrenal adenoma. Based on imaging appears to be benign. In terms of biochemical workup but she ruled out for Emilia syndrome and primary hyperaldosteronism but the dexamethasone suppression test did not suppress the cortisol appropriately. I have requested salivary cortisol, 24-hour urine cortisol and ACTH levels were all in the reference range. Repeat fasting serum cortisol is high normal at 18.4 which I suppose can be related to tooth pain/stress. In any case I will give her a follow-up appointment again in 1 year and repeat salivary cortisol x 2. Assessment & Plan (11/22/2024 2:16 PM EST): Patient has left adrenal nodule measuring 2.[address] imaging. Repeat CT imaging done with adrenal protocol showed the nodule measured 2.2 cm. It was also consistent with a benign adrenal adenoma. She did rule out for pheochromocytoma and primary hyperaldosteronism but felt the dexamethasone suppression test. The cortisol could have suppressed below 1.8 mg/dL but the level was 2.2. At this point I will check fasting cortisol, ACTH ordered salivary cortisol x 2 and also obtain 24- hour urine cortisol. Assessment & Plan (08/16/2024 12:28 PM EDT): The patient was found to have an incidental left adrenal nodule measuring 2.4 cm which is indeterminate. Apparently they did not use adrenal protocol. I will request repeat CT with contrast with adrenal protocol to determine Hounsfield units. I will also do biochemical evaluation to determine if the nodule is secreting. She was advised that she must do lab work fasting in the morning soon after waking up. I will do a dexamethasone suppression test for evaluation of [place]'s syndrome. That means that she must take dexamethasone tablet at bedtime the day before doing the blood work fasting. I am also requesting lab work for evaluation of primary hyperaldosteronism and pheochromocytoma. Hypokalemia 05/02/2024 Assessment & Plan (05/02/2024 2:43 PM EDT): While in the emergency department she was noted to have a potassium of 3.0 and a magnesium level of 1.8. She was given repletion of her potassium and then discharged home. We will repeat of BMP today to check her potassium. Nausea and vomiting 05/02/2024 Assessment & Plan (05/02/2024 2:44 PM EDT): Patient who reported to the ER for nausea and vomiting and fatigue. She underwent some laboratory data which did reveal leukocytosis. Patient was given IV fluids and noted that her vomiting resolved after 24 hours. Etiology can include allergic reaction to bee stings versus heat exhaustion versus GI bug. Currently patient notes that her symptoms have completely resolved and she is back to normal. Polyneuropathy associated with underlying diseas e 11/23/2019 Type 2 diabetes mellitus wit h diabetic polyneuropathy, with long-term current use of insulin 04/14/2018 Assessment & Plan (05/15/2025 3:25 PM EDT): - Blood glucose levels are within the normal range, with no instances of hypoglycemia. - Target fasting blood glucose level is between 100 and 150. - Advised to reduce Tresiba dosage to 11 units daily. - If fasting blood glucose levels exceed 180 for three or four consecutive days, increase the dosage by 1 unit. - If fasting blood glucose levels fall below 100 for two consecutive days, decrease the dosage by 1 unit. - Contact us if any patterns in blood glucose levels are noticed. - Prescription for Tradjenta provided through pharmacy. - Each Tresiba pen should last for 56 days once opened. - Refill of Tresiba and Tradjenta prescriptions sent to pharmacy. Orders: TRADJENTA 5 mg Tab; Take 1 tablet (5 mg total) by mouth daily. TRESIBA FLEXTOUCH U-100 injection pen; Inject up to 20 units daily DX:E11.42 Assessment & Plan (03/09/2025 8:57 PM EDT): CGM reviewed with Jordan Continues on low dose basal insulin, recently started DDP4 and tolerating well but control has actually worsened Continues with significant rise in patterns in the evening even with reportedly small meal, rise tends to happen even before higher carb bedtime snack that Amalia looks forward to DPP4 was chosen for the least complex addition to the regimen but it appears to not be effective enough Revisited medication options including SGLT2i or small dose of bolus insulin at dinner, I am concerned about hydration with SGLT2i, small dose of bolus insulin could be helpful, but may increase risk of hypoglycemia overnight Given trouble with memory, important to simplify regimen with easy plan and lowest side effect profile We discussed reducing basal insulin to 10 units if fastings become <100 CGM is likely adding benefit to providing realtime feedback regarding meals and allowing Amalia to making appropriate adjustments to meals and meal timing Appropriate A1c for age and comorbidities is 7-8%, goal TIR >50%, important to reduce risk of hypoglycemia, especially with Amalia's current health condition Encouraged continued efforts at balanced, mindful eating Encouraged continued efforts at physical activity as tolerated, Amalia would like to start walking again Advised to contact office with any questions or concerns. Amalia will return to meet with Keli in 2 weeks, if there is unable to be lifestyle adjustment then we will move forward with adjustment medications, we will follow up in 6 weeks Assessment & Plan (01/24/2025 8:48 AM EDT): CGM reviewed with Amalia and Brent Continues on low dose basal insulin alone Appetite still tends to be low, but signifcant rise in patterns in the evening even with reportedly small meal, rise tends to happen even before higher carb bedtime snack that Amalia looks forward to Discussed medication options including DPP4, SGLT2i, and small dose of bolus insulin at dinner, I am concerned about hydration so we deferred SGLT2i today, small dose of bolus insulin could be helpful, but may increase risk of hypoglycemia overnight, Amalia is near goal TIR for age and comorbidities, given trouble with memory, important to simplify regimen with easy plan and lowest side effect profile, we discussed DPP4 is not strong in nature, but could provide enough effect to reduce how high the sugar goes in the evening, Amalia is willing to try it We discussed reducing basal insulin to 10 units with starting DPP4i CGM is likely adding benefit to providing realtime feedback regarding meals and allowing Amalia to making appropriate adjustments to meals and meal timing Appropriate A1c for age and comorbidities is 7-8%, goal TIR >50%, important to reduce risk of hypoglycemia, especially with Amalia's current symptoms Encouraged continued efforts at balanced, mindful eating Encouraged continued efforts at physical activity as tolerated, Amalia is looking forward to returning to more activity with the [employer] Advised to contact office with any questions or concerns. Amalia will return to meet with me in 6 weeks for medication follow up, but we will check in on Amalia in 1- 2 weeks with starting Tradjenta, encouraged Amalia to reach out as needed for persistent hyperglycemia or frequent hypoglycemia Assessment & Plan (08/15/2024 2:41 PM EDT): CGM shows improving patterns, though still continues with significant drop in patterns overnight and risk for hypoglycemia before evening meal Control may have improved due to reduced appetite, though important to ensure Amalia is well nourished so once able to improve appetite blood sugars may trend up, Amalia is meeting with endocrinology tomorrow to discuss current symptoms We discussed reducing basal insulin to 10 units CGM is likely adding benefit to providing realtime feedback regarding meals and allowing Amalia to making appropriate adjustments to meals and meal timing Amalia is meeting goal of time in range given age and comorbidities of > 50% Appropriate A1c for age and comorbidities is 7-8%, important to reduce risk of hypoglycemia, especially with Amalia's current symptoms Encouraged continued efforts at balanced, mindful eating Encouraged continued efforts at physical activity as tolerated, Amalia is looking forward to returning to more activity with the [facility] Advised to contact office with any questions or concerns. Amalia will return to meet with me in 3 months, encouraged Amalia to reach out as needed for persistent hyperglycemia or frequent hypoglycemia Assessment & Plan (02/02/2024 4:37 PM EDT): CGM trial reveals limited patterns given new meter, higher patterns overall though since resuming CGM therapy A1c is elevated No longer taken sulfonylurea, prandial elevations are most significant during the day and into the evening, we discussed resuming sulfonylurea dosing which seemed to keep Amalia well controlled in the past, though recommend resuming at a lower dose to reduce risk of hypoglycemia, encouraged Amalia to reach out with any hypoglycemia or if hyperglycemia persists Encouraged Amalia to continue 14 units and take this consistently CGM is likely adding benefit to providing realtime feedback regarding meals and allowing Amalia to making appropriate adjustments to meals and meal timing Amalia is below goal of time in range given age and comorbidities of > 50% Appropriate A1c for age and comorbidities is 7-8% Discussed impact of stress on blood sugars Encouraged continued efforts at balanced, mindful eating Encouraged continued efforts at physical activity as tolerated, Amalia is looking forward to returning to more activity with the [employer] Advised to contact office with any questions or concerns. Amalia will return to meet with Keli Horne in 3 months and we will follow up in 6 months, encouraged Amalia following up sooner as needed for persistent hyperglycemia especially if plans to have another cortisone injection Assessment & Plan (09/14/2023 3:28 PM EST): CGM trial reveals higher patterns overall, likely related to recent cortisone injection A1c is relatively stable, compared to past A1cs No longer take sulfonylurea, prandial elevations are most significant during the evening though elevations have been less significant over the past few days and Amalia reports being able to be a bit more active now Encouraged Amalia to continue 16 units and take this consistently, we discussed reducing to 14 units if noticing FPG <100 CGM is likely adding benefit to providing realtime feedback regarding meals and allowing Amalia to making appropriate adjustments to meals and meal timing Amalia is below goal of time in range given age and comorbidities of > 50% and GMI elevated at 8.5% Appropriate A1c for age and comorbidities is 7-8% Encouraged continued efforts at balanced, mindful eating, we discussed ways to adjust meals/snacks to help reduce hyperglycemia, advised reducing honey with tea to reduce late night elevations Encouraged continued efforts at physical activity as tolerated, lower patterns over the past few days likely a result of being able to be a little more active with ADLs, encouraged Amalia to continue this as tolerated Advised to contact office with any questions or concerns. Amalia will return to meet with Keli Horne in 3 months and we will follow up in 4 months, encouraged Amalia following up sooner as needed for persistent hyperglycemia especially if plans to have another cortisone injection Assessment & Plan (03/10/2023 3:24 PM EDT): CGM trial reveals good patterns, less time low, less time in very high ranges (>250), GMI (estimated A1c for 2 weeks) 7.8% Recent A1c was a bit higher, but less hypoglycemia on CGM download is reassuring Encouraged Amalia to continue 16 units and take this consistently as increasing will not only treat higher nighttime patterns, but will lower fasting blood sugars as well CGM is likely adding benefit to providing realtime feedback regarding meals and allowing Amalia to making appropriate adjustments to meals and meal timing, this can be observed with reduced prandial rise around lunchtime Reviewed that Amalia is meeting goal of time in range given age and comorbidities of > 50% and GMI is in range of 7.8% Appropriate A1c for age and comorbidities is 7-8% CGM has been an invaluable tool to bring more awareness to how certain foods affect the blood sugars and help with realtime feedback of how certain factors affect blood sugar, including activity, food, stress, and how to adjust lifestyle factors to help improve overall glycemic patterns. Also has been beneficial in providing alerts for lows, we reviewed alerts and Amalia would like to keep them all the same today Encouraged continued efforts at balanced, mindful eating Encouraged continued efforts at physical activity as tolerated Advised to contact office with any questions or concerns. Amalia will return to meet with Keli Horne in 3 months and we will follow up in 6 months Assessment & Plan (12/10/2022 6:34 PM EST): CGM trial revealed improving patterns, less time low, less time in very high ranges (>250), GMI (estimated A1c for 2 weeks) 7.5% Recent A1c was a bit higher, but less hypoglycemia on CGM download is reassuring We reviewed that higher A1c incorporates the holidays and it is common to see a seasonal increase in the A1c, reasurring that GMI on CGM download reveals improvement Occasional fasting hypoglycemia, likely around the time of self-increasing Tresiba doses Encouraged Amalia to remain at 16 units and take this consistently as increasing will not only treat higher nighttime patterns, but will lower fasting blood sugars as well CGM is likely adding benefit to providing realtime feedback regarding meals and allowing Amalia to making appropriate adjustments to meals and meal timing, this can be observed with reduced prandial rise around lunchtime Reviewed that Amalia is meeting goal of time in range given age and comorbidities of > 50% and GMI is in range of 7.5% Appropriate A1c for age and comorbidities is 7-8% We reviewed lifestyle modifications that can help with prandial elevations and unexpected off routine eating, but overall Amalia is doing an excellent job at being mindful of meals, CGM is helping with this CGM has been an invaluable tool to bring more awareness to how certain foods affect the blood sugars and help with realtime feedback of how certain factors affect blood sugar, including activity, food, stress, and how to adjust lifestyle factors to help improve overall glycemic patterns. Also has been beneficial in providing alerts for lows, we reviewed alerts and Amalia would like to keep them all the same today Amalia is encouraged to keep an eye on fasting blood sugars and to reduce Tresiba if fasting blood sugars are consistently less than 100 mg/dl Encouraged continued efforts at balanced, mindful eating Encouraged continued efforts at physical activity as tolerated Advised to contact office with any questions or concerns. Amalia will return to meet with Keli Horne next month and we will follow up in 3 months Assessment & Plan (09/30/2022 12:51 PM EST): CGM Trial Type of Diabetes: Diabetes mellitus Type 2 Assessment/HPI: Vida is here today for CGM trial. Procedures: Glucose Monitoring: Type of Sensor: Freestyle 2 Instruction: Patient Instructed on:, Calibrations, When to test BS, Troubleshooting, What to expect with the sensor, Patient instructed to remove sensor if redness, pain or bleeding occurs. . Insertion Site Selected: left arm Site Prep: Insertion site wiped with alcohol. Insertion: completed, area looks good, no redness, no bleeding. Plan: Patient will remove sensor and return in 2 weeks to drop off at senior front end [facility] or follow up appointment. Assessment & Plan (09/09/2022 4:21 PM EST): CGM trial revealed patterns of nocturnal and fasting hypoglycemia in the first few days of trial before reduction in Tresiba took effect, continues with hyperglycemia after lunch/through the end of the day We discussed other medications that could help in prandial elevations, glipizide likely isn't working strong enough, Amalia is apprehensive to new medications due to history of medication sensitivity/allergies We discussed lifestyle modifications that can help with prandial elevations and encouraged Amalia to see one of the educators here which she is open to I also think a personal CGM would be an invaluable tool to bring more awareness to how certain foods affect the blood sugars and help with realtime feedback of how certain factors affect blood sugar, including activity, food, stress, and how to adjust lifestyle factors to help improve overall glycemic patterns. This can also help in alerting Amalia to low sugar levels especially overnight and in the morning since Amalia seems to be mildly unaware of hypoglycemia. No changes made to Tresiba dosing giving improvement in overnight hypoglycemia since last adjustment, though Amalia is encouraged to keep an eye on fasting blood sugars and to reduce Tresiba further if fasting blood sugars are consistently less than 100 mg/dl Encouraged continued efforts at balanced, mindful eating Encouraged continued efforts at physical activity as tolerated Advised to contact office with any questions or concerns. We will follow up in 3 months, at which time another CGM trial can be repeated Assessment & Plan (08/19/2022 3:53 PM EDT): BG meter reveals patterns of fasting hypoglycemia indicating basal insulin is likely too high Recommend 20% reduction in basal insulin given significant amount of fasting hypoglycemia. Advised decreasing to 17 units pf Tresiba once daily Discussed value in repeating CGM trial to view patterns later in the day, Amalia is willing to do this today We also discussed the benefits of using a personal CGM to help provide realtime feedback of how certain factors affect blood sugar, including activity, food, stress, and how to adjust lifestyle factors to help improve overall glycemic patterns as well as alerting Amalia to hypoglycemia which she seems to be hypoglycemic unaware Encouraged continued efforts at balanced, mindful eating Encouraged continued efforts at physical activity as tolerated Advised to contact office with any questions or concerns, especially if continues with fasting hypoglycemia. We will follow up in 3 weeks for CGM interpretation Assessment & Plan (05/20/2022 1:17 PM EDT): CGM trial revealed patterns of nocturnal and fasting hypoglycemia as well as hyperglycemia after lunch/through the end of the day We discussed the factors that likely lead to the hyperglycemia later in the day including the typical midday meal of cereal and fruit, as well as the Levemir likely wearing off before the next dose given its shorter duration compared to other basal insulin, as suspected. Recommend Amalia to incorporate more non-starchy veggies and protein sources into lunch meal, and trying to reduce the frequency of cereal and fruit for lunchtime meal. Amalia does admit looking forward to her lunchtime meal of fruit and cereal and likes to have a simple meal for breakfast and lunch. We set the goal of trying to have an alternative lunch twice a week with carbs and protein like a peanut butter sandwich or a grilled cheese with tomato. Concerned regarding nocturnal/fasting hypoglycemia and would recommend reduction of basal insulin dosing. Recommend either twice daily dosing of levemir or switching to a longer acting basal insulin. Amalia opted for remaining with once daily basal insulin dosing, provided sample of Tresiba today which will offer more coverage when compared to once a day Levemir dosing. Recommend 20% reduction in basal insulin given significant amount of nocturnal/fasting hypoglycemia. Advised starting with Tresiba 24 units once daily. Provided education on dosing, timing, duration of Tresiba. Amalia will trial this and we will check in with her early next week to ensure she is tolerating it okay. If so, will send further supply to pharmacy We also discussed the benefits of using a personal CGM to help provide realtime feedback of how certain factors affect blood sugar, including activity, food, stress, and how to adjust lifestyle factors to help improve overall glycemic patterns. Amalia would like to think about a personal CGM and will let us know if she would like us to place a DME order in the future Encouraged continued efforts at balanced, mindful eating Encouraged continued efforts at physical activity as tolerated Advised to contact office with any questions or concerns. We will follow up in 3 months, at which time another CGM trial can be repeated Assessment & Plan (05/05/2022 4:46 PM EDT): Amalia presents for an initial visit for diabetes management at [facility]. Currently on Levemir 30 units nightly and glipizide 10 mg daily, usually takes this after breakfast. Fasting blood sugars are in excellent range, occasionally even too low in the 60s/70s, so likely having elevations later on in the day which could be explained by the shorter duration of Levemir. With only dosing this once daily, it is likely wearing off before the next dose, leading to elevations later in the day We also discussed factors that impact blood sugars which can include stress, which Amalia reports being under a lot of lately It would be most beneficial to obtain more glucose data throughout the entirety of the day and we discussed doing a CGM trial which Amalia is agreeable to. I asked Amalia to keep a food log while wearing the sensor. Amalia started using a new meter which reports overall no huge difference, though did notice it seems to read higher. For this, we will not make any adjustments right now on insulin with recorded hypoglycemia, instead opting to wait for CGM results. CGM Trial Type of Diabetes: Diabetes mellitus Type 2 Assessment/HPI: Vida is here today for CGM trial. Procedures: Glucose Monitoring: Type of Sensor: Freestyle Anastasia 2 Pro Instruction: Patient Instructed on:, Calibrations, When to test BS, Troubleshooting, What to expect with the sensor, Patient instructed to remove sensor if redness, pain or bleeding occurs. . Insertion Site Selected: Left arm Site Prep: Insertion site wiped with alcohol. Insertion: completed, area looks good, no redness, no bleeding. Plan: Patient will remove sensor and return in 2 weeks for follow up appointment. Acquired hammer toe of left foot 04/14/2018 Essential hypertension 04/14/2018 Assessment & Plan (03/09/2025 8:57 PM EDT): Blood pressure in borderline today BP goal <130/80 Continues on antihypertensive regimen that includes ARB Assessment & Plan (01/24/2025 8:48 AM EDT): Blood pressure in borderline today BP goal <130/80 Continues on antihypertensive regimen that includes ARB Assessment & Plan (08/15/2024 2:41 PM EDT): Blood pressure in good range today BP goal <130/80 Continues on antihypertensive regimen that includes ARB Assessment & Plan (02/02/2024 4:32 PM EDT): Blood pressure in good range today BP goal <130/80 Continues on antihypertensive regimen that includes ARB Assessment & Plan (09/14/2023 3:29 PM EST): Blood pressure in good range today BP goal <130/80 On ARB Assessment & Plan (03/10/2023 2:43 PM EDT): Blood pressure in good range today BP goal <130/80 On ARB Assessment & Plan (12/10/2022 6:45 PM EST): Blood pressure in good range today BP goal <130/80 On ARB Assessment & Plan (09/09/2022 4:13 PM EST): Blood pressure in good range today BP goal <130/80 On ARB Assessment & Plan (08/19/2022 3:54 PM EDT): Blood pressure elevated today BP goal <130/80 On ARB Assessment & Plan (05/20/2022 1:12 PM EDT): Blood pressure in excellent range today On ARB Assessment & Plan (05/05/2022 4:47 PM EDT): Blood pressure in excellent range today On ARB Hematuria 04/14/2018 Kidney stone 04/14/2018 Mixed hyperlipidemia 04/14/2018 Assessment & Plan (03/09/2025 8:57 PM EDT): Reviewed most recent lipid panel LDL above goal Goal < 70 with DM On moderate intensity statin therapy Assessment & Plan (01/24/2025 8:48 AM EDT): Reviewed most recent lipid panel LDL above goal Goal < 70 with DM On moderate intensity statin therapy Assessment & Plan (08/15/2024 2:41 PM EDT): Reviewed most recent lipid panel LDL above goal Goal < 70 with DM On moderate intensity statin therapy Assessment & Plan (02/02/2024 4:34 PM EDT): Reviewed most recent lipid panel LDL above goal, much higher than previous draw Goal < 70 with DM Had been off statin with last lab draw, has resumed therapy on moderate intensity statin therapy Assessment & Plan (09/14/2023 3:29 PM EST): No updated labs since last visit LDL just above goal Goal < 70 with DM On moderate intensity statin therapy Assessment & Plan (03/10/2023 2:42 PM EDT): No updated labs since last visit LDL just above goal Goal < 70 with DM On moderate intensity statin therapy Assessment & Plan (12/10/2022 6:44 PM EST): No updated labs since last visit LDL just above goal Goal < 70 with DM On moderate intensity statin therapy Assessment & Plan (08/19/2022 3:54 PM EDT): No updated labs since last visit LDL just above goal Goal < 70 with DM On moderate intensity statin therapy Assessment & Plan (05/20/2022 1:12 PM EDT): No updated labs since last visit LDL just above goal Goal < 70 with DM On moderate intensity statin therapy Assessment & Plan (05/05/2022 4:48 PM EDT): Reviewed most recent lipid panel LDL mildly elevated Goal < 70 with DM On moderate intensity statin therapy Nocturia 04/14/2018 Osteopenia 04/14/2018 Other hammer toe(s) (acquired), right foot 04/14 Right knee pain 04/14/2018 Plantar fascial fibromatosis 04/14/2018 Primary osteoarthritis involving multiple joints 04/14/2018 Encounters Date Type Department Care Team Description 07/23/2025 9:57 AM EDT - 07/23/2025 11:59 PM EDT Hospital Encounter [facility] [address] [facility] [place] [address] Howard Lorenzo MD Discharge Disposition: Home or Self Care 07/23/2025 Telephone [facility] [address] [facility] [place] [address] Howard Lorenzo MD 07/20/2025 4:30 PM EDT Office Visit [facility] [address] [facility] [place] [address] Howadr Lorenzo MD Need for prophylactic vaccination and inoculation against influenza (Primary Dx); Type 2 diabetes mellitus with diabetic polyneuropathy, with long-term current use of insulin; Essential hypertension; Nocturia; Left lower quadrant abdominal mass; Adrenal mass, left 07/20/2025 Orders Only [facility] [place] [address] ProviderWilfredo MD 2025 Telephone [facility] [address] [place] [address] Leonora Ro CNP Blood Sugar Problem 05/14/2025 12:30 PM EDT Office Visit [facility] [address] [place] [address] Leonora Ro CNP Type 2 diabetes mellitus with diabetic polyneuropathy, with long-term current use of insulin 05/02/2025 4:20 PM EDT - 05/02/2025 11:59 PM EDT Hospital Encounter [address] [address] Howard Lorenzo MD Discharge Disposition: Home or Self Care 05/01/2025 Telephone [facility] [address] [place] [phone] Adenike Courtney MA CLINICAL NOTES 04/24/2025 Procedure Pass [address] [address] 04/23/2025 3:20 PM EDT - 04/23/2025 11:59 PM EDT Hospital Encounter [facility] Laboratory [address] [place] [address] Howard Lorenzo MD Discharge Disposition: Home or Self Care 04/23/2025 2:00 PM EDT Office Visit [facility] [address] [place] [address] Howard Lorenzo MD Type 2 diabetes mellitus with diabetic polyneuropathy, with long-term current use of insulin (Primary Dx); Routine general medical examination at a health care facility; Primary osteoarthritis of both hips; Essential hypertension; Memory loss; Pure hypercholesterolemia; Vitamin D deficiency, unspecified; Screening mammogram, encounter for; Postmenopausal estrogen deficiency; Abnormal finding on imaging; Skull lesion from Last 3 Months Immunizations Immunization Administration Dates Next Due COVID-19 (Pre-08/16) Pfizer Vaccine, mRNA, PF ,11/29/2020 Hib, unspecified formulation 08/25/2008 Influenza High-Dose Quadrivalent Preservative Fr ee IM 08/02/2020 Influenza High-Dose Trivalent Preservative Free IM 07/28/2019,08/22/2018 Pneumococcal conjugate PCV13 10/03/2015 Pneumococcal polysaccharide PPSV23 01/05/2011, Td, unspecified formulation 04/24/2001 Tdap 04/01/2012 Zoster live 12/20/2012 Zoster recombinant 10/02/2020,08/02/2020 Family History Medical History Relation Comments Rectal cancer Father Diabetes Mother Heart attack Sister 1 Relation Status Comments Brother Alive Father in his 70s d/t rectal cancer Mother (Age 76) at 76 y/o Sister 1 close to 90 y/o d/t heart attack Sister 2 Alive Social History Tobacco Use Types Packs/Day Years Used Date Smoking Tobacco: Former Cigarettes 1 29 1 965 - 10/25/1993 Passive Smoke Exposure: Past Smokeless Tobacco: Never Tobacco Cessation:Counseling Given: Not Answered Comments:quit over 25 years ago Alcohol Use [...] Orientation Straight 03/05/2022 7: 25 PM EDT Last Filed Vital Signs Vital Sign Reading [...] Mass Index 27.4 07/20/2025 4:42 PM EDT Plan of Treatment Upcoming Encounters Date Type Department Care Team (Late st Contact Info) Description 09/29/2025 1:30 PM EST Appointment [facility], [address] [address] Howard Lorenzo MD [address] [place] [phone] 11/14/2025 1:30 PM EST Office Visit [facility] [address] [place] [address] Howard Lorenzo MD [address] [place] [phone] 11/15/2025 12:30 PM EST Office Visit [facility] [address] [place] [address] Leonora Ro, DON [address] [facility] [place] [address] 03/11/2026 2:00 PM EDT Office Visit [facility] [place] [address] [place] [address] Carline Chavez MD [address] [place] [phone] [email or web address] Health Maintenance Due Date Last Done Comments RSV VACCINE (1 - 1-dose 75+ series) 2019 Adult Td,Tdap Booster 04/01/2022 04/01/2012, 001 DIABETIC EYE EXAM 05/10/2025 05/10/2024, , 08/11/2022, Additional history exists INFLUENZA VACCINE (#1) 2025 , 08/02/2020, 07/28/2019, Additional history exists COVID-19 VACCINE ( season) 2025 09/30/2021, 12/20/2020, 11/29/2020 REPEAT PHQ 08/19/2025 07/20/2025, 07/20/2025 HEMOGLOBIN A1C 10/22/2025 07/23/2025, 06, 01/05/2025, Additional history exists BLOOD PRESSURE 01/17/2026 07/20/2025 URINE MICROALBUMIN/CREATININE RATIO 04/23/2026 04/23/2025, 01/12/2024, 05/19/2023, Additional history exists DEPRESSION SCREENING 07/20/2026 07/20/2025, 07/20/20 25 HIB VACCINES Aged Out 08/25/2008 No longer eligi ble based on patient's age to complete this topic PNEUMOCOCCAL VACCINES (50+ years) Completed 10/03/2015, 01/05/2011, 01/21/2005 ZOSTER VACCINES Completed 10/02/2020, 06/2020, 12/20/2012 OSTEOPOROSIS SCREENING INITIAL (ONE-TIME) Completed 03/11/2023, 03/02/2023, 10/21/2018 HEPATITIS A VACCINES Aged Out No long er eligible based on patient's age to complete this topic MENINGOCOCCAL VACCINES (ACWY) Aged Out No longer eligible based on patient's age to complete this topic MENINGOCOCCAL VACCINES (B) Aged Out N o longer eligible based on patient's age to complete this topic Medical Devices Not on file Procedures Procedure Name Priority Date/Time Associated Diagnosis Comments URINE SEDIMENT Routine 07/23/2025 9:57 AM EDT URINALYSIS W/REFLEX URINE CULTURE Routine 07/23/2025 9:57 AM EDT Type 2 diabetes mellitus with diabetic polyneuropathy, with long-term current use of insulin Essential hypertension Nocturia COMPREHENSIVE METABOLIC PANEL Routine 07/23/2025 9:54 AM EDT Type 2 diabetes mellitus with diabetic polyneuropathy, with long-term current use of insulin Essential hypertension CBC AND DIFFERENTIAL Routine 07/23/2025 9:54 AM EDT Type 2 diabetes mellitus with diabetic polyneuropathy, with long-term current use of insulin Essential hypertension HEMOGLOBIN A1C Routine 07/23/2025 9:54 AM EDT Type 2 diabetes mellitus with diabetic polyneuropathy, with long-term current use of insulin TSH WITH REFLEX Routine 07/23/2025 9:54 AM EDT Type 2 diabetes mellitus with diabetic polyneuropathy, with long-term current use of insulin Essential hypertension LIPASE Routine 07/23/2025 9:54 AM EDT Left lower quadrant abdominal mass OUTSIDE IMAGING Routine 07/20/2025 5:[address] HEAD WITHOUT CONTRAST Routine 05/02/2025 4:33 PM EDT Abnormal finding on imaging Skull lesion BI MAMMOGRAM SCREENING (BILATERAL) Routine 04/24/2025 7:39 PM EDT Screening mammogram, encounter for URINE SEDIMENT Routine 04/23/2025 3:48 PM EDT URINALYSIS W/REFLEX URINE CULTURE Routine 04/23/2025 3:48 PM EDT Essential hypertension Memory loss MICROALBUMIN/CREATINI NE RATIO, RANDOM URINE Routine 04/23/2025 3:48 PM EDT Essential hypertension Memory loss URINE CULTURE Routine 04/23/2025 3:48 PM EDT HEMOGLOBIN A1C Routine 04/23/2025 3:20 PM EDT Type 2 diabetes mellitus with diabetic polyneuropathy, with long-term current use of insulin COMPREHENSIVE METABOLIC PANEL Routine 04/23/2025 3:20 PM EDT Type 2 diabetes mellitus with diabetic polyneuropathy, with long-term current use of insulin Primary osteoarthritis of both hips Essential hypertension Memory loss LIPID PANEL Routine 04/23/2025 3:20 PM EDT Type 2 diabetes mellitus with diabetic polyneuropathy, with long-term current use of insulin C-REACTIVE PROTEIN Routine 04/23/2025 3: 20 PM EDT Primary osteoarthritis of both hips Essential hypertension Memory loss CBC AND DIFFERENTIAL Routine 04/23/2025 3:20 PM EDT Essential hypertension 25-OH VITAMIN D Routine 04/23/2025 3:20 PM EDT Vitamin D deficiency, unspecified VITAMIN B12 Routine 04/23/2025 3:20 PM EDT Memory loss FOLATE Routine 04/23/2025 3:20 PM EDT Memory loss DIABETES EYE EXAM FOR RESULT ENTRY ONLY Routine 05/10/2024 3:56 PM EDT DEXA SCAN Routine 03/11/2023 from Last 3 Months or Most Recently Relevant to Health Maintenance Results * (ABNORMAL) Urinalysis w/reflex Urine Culture (07/23/2025 9:57 AM EDT) Only the most recent of2 resultswithin the time period is included. COLOR STRAW(A) Yellow [facility] CLARITY Clear [facility] GLUCOSE Negative Negative [facility] BILI Negative Negative [facility] KETONES Negative Negative [facility] SPECIFIC GRAVITY 1.010 1.005 - 1.030 [facility] BLOOD Negative Negative [facility] PH 7.0 5.0 - 8.0 [facility] Protein-UA Negative Negative [facility] NITRITE Positive(A) Negative [facility] Leukocyte esterase, ur 1+(A) Negative [facility] Urine (Urine) 07/23/2025 9:5 7 AM EDT 07/23/2025 10:02 AM EDT Howard Lorenzo MD URINE ORDERABLES Final Result Performing Organization Address [facility] de Phone Number [address] [address] * (ABNORMAL) Urine sediment (07/23/2025 9:57 AM EDT) Only the most recent of2 resultswithin the time period is included. WBC 5-10(A) NONE SEEN /hpf [facility] RBC 0-2(A) NONE SEEN /hpf [facility] URINE EPITHELIAL 0-4(A) NONE SEEN [facility] MUCUS Trace(A) NONE SEEN /hpf [facility] BACTERIA 1+(A) NONE SEEN /hpf [facility] 07/23/2025 9:57 AM EDT 07/23/2025 10:02 AM EDT Howard Lorenzo MD URINE ORDERABLES Final Result Performing Organization Address [facility] Co de Phone Number [address] [address] * (ABNORMAL) Comprehensive metabolic panel (07/23/2025 9:54 AM EDT) Only the most recent of2 resultswithin the time period is included. SODIUM 139 133 - 146 mmol/L [facility] POTASSIUM 4.2 3.3 - 5.1 mmol/L [facility] CHLORIDE 101 96 - 108 mmol/L [facility] CO2 26 21 - 35 mmol/L [facility] BUN 10 6 - 19 mg/dL [facility] CREATININE 0.60 0.5 - 1.5 mg/dL [facility] GLUCOSE 130(H) 70 - 99 mg/dL [facility] ALBUMIN 4.4 3.9 - 4.8 g/dL [facility] TOTAL PROTEIN 7.0 6.5 - 8.0 g/dL [facility] CALCIUM 9.9 8.4 - 10.3 mg/dL [facility] ALKALINE PHOSPHATASE 76 39 - 117 U/L [facility] TOTAL BILIRUBIN 0.4 0.0 - 1.2 mg/dL [facility] AST 18 0 - 37 U/L [facility] ALT 6 0 - 40 U/L [facility] GLOBULIN 2.6 1 - 4.8 g/dL [facility] EGFR 90 >59 mL/min/1.7 3m2 [facility] Comment:Estimated glomerular filtration rate calculated using the CKD-EPI refit equation. ANION GAP 16 10 - 20 mmol/L [facility] Blood 07/23/2025 9:54 AM EDT 07/23/2025 9:57 AM EDT us Howard Lorenzo MD LAB BLOOD ORDERABLES Final Re sult Performing Organization Address City/[facility]/ZIP Co de Phone Number [address] [address] * TSH with reflex (07/23/2025 9:54 AM EDT) TSH 1.45 0.27 - 4.20 uIU/mL [facility] Blood 07/23/2025 9:54 AM EDT 07/23/2025 9:57 AM EDT us Howard Lorenzo MD LAB BLOOD ORDERABLES Final Re sult Performing Organization Address City/[facility]/ZIP Co de Phone Number [address] [address] * CBC and differential (07/23/2025 9:54 AM EDT) Only the most recent of2 resultswithin the time period is included. WBC 9.96 4.00 - 11.00 K/uL [facility] RBC 4.60 4.00 - 5.20 M/uL [facility] HGB 13.6 12.0 - 16.0 g/dL [facility] HCT 39.8 36.0 - 46.0 % [facility] PLT 299 150 - 450 K/uL [facility] MCV 86.5 80.0 - 100.0 fL [facility] MCH 29.6 27.0 - 31.0 pg [facility] MCHC 34.2 32.0 - 36.0 g/dL [facility] RDW 12.8 11.5 - 14.5 % [facility] MPV 9.9 8.4 - 12.0 fL [facility] NRBC 0.00 0.00 /100 WBCs [facility] ABSOLUTE NRBC 0.00 0.00 K/uL [facility] DIFF METHOD Auto [facility] NEUTS 66.6 48.0 - 76.0 % [facility] LYMPHS 20.9 18.0 - 41.0 % [facility] MONOS 8.9 4.0 - 11.0 % [facility] EOS 2.0 0.0 - 5.0 % [facility] BASOS 1.3 0.0 - 1.5 % [facility] Granulocytes, immature (%) 0.3 0.0 - 0.9 % [facility] ABSOLUTE NEUTS 6.63 1.92 - 7.60 K/uL [facility] ABSOLUTE LYMPHS 2.08 0.72 - 4.10 K/uL [facility] ABSOLUTE MONOS 0.89 0.16 - 1.10 K/uL [facility] ABSOLUTE EOS 0.20 0.00 - 0.50 K/uL [facility] ABSOLUTE BASOS 0.13 0.00 - 0.15 K/uL [facility] Granulocytes, immature 0.03 0.00 - 0.09 K/uL [facility] Blood 07/23/2025 9:54 AM EDT 07/23/2025 9:57 AM EDT us Howard Lorenzo MD LAB BLOOD ORDERABLES Final Re sult [facility] [address] [place] [address] * Lipase (07/23/2025 9:54 AM EDT) LIPASE 17 16 - 63 U/L [facility] Blood 07/23/2025 9:54 AM EDT 07/23/2025 9:57 AM EDT Howard Lorenzo MD LAB BLOOD ORDERABLES Final Re sult Performing Organization Address [facility] Co de Phone Number [address] [address] * (ABNORMAL) Hemoglobin A1c (07/23/2025 9:54 AM EDT) Only the most recent of2 resultswithin the time period is included. HEMOGLOBIN A1C 8.1(H) 4.3 - 5.8 % [facility] Blood 07/23/2025 9:54 AM EDT 07/23/2025 9:57 AM EDT Howard Lorenzo MD LAB BLOOD ORDERABLES Final Re sult Performing Organization Address [facility] de Phone Number [address] [address] * Outside Imaging Report Only (07/20/2025 5:01 PM EDT) us Historical Provider IMG XR CHEST Final Res ult * CT HEAD WITHOUT CONTRAST (05/02/2025 4:33 PM EDT) Anatomical Region Laterality Modality Head Computed Tomogra phy 05/03/2025 2:48 PM EDT Impressions 05/03/2025 3:[address] evidence of acute intracranial hemorrhage, mass-effect or large vascular territory infarct. 2. Chronic lacunar infarcts in the RIGHT thalamus. Narrative 05/03/2025 3:[address] HEAD WITHOUT CONTRAST Referring clinician's provided indication for this examination in [facility]: *Abnormal imaging; 3 cm right parietql bone lesion TECHNIQUE: Multidetector-row CT of the head was performed without intravenous contrast using tailored dose modulation techniques. Images were reconstructed in the axial, coronal, and sagittal planes. COMPARISON: CT HEAD WITHOUT CONTRAST ; MRI BRAIN WITH AND WITHOUT CONTRAST FINDINGS: Brain Parenchyma: No midline shift, mass effect, parenchymal hemorrhage, or evidence of acute territorial infarct. There are areas of hypodensity in the periventricular white matter, likely a manifestation of chronic small vessel disease. Well delineated hypodensities within the RIGHT thalamus, likely chronic lacunar infarct, similar to the most recent prior MRI although more medial meniscus is new compared with prior CT for Ventricular System and Extra-Axial Spaces: Ventricular and sulcal prominence, including bilateral medial temporal lobes, slightly more prominent on the RIGHT. Basilar cisterns are patent. No hydrocephalus. Osseous and Extracranial Structures: No significant paranasal sinus disease. No orbital abnormality. Status post bilateral cataract surgery. There is minimal sclerosis in the area of previously seen mild enhancement in the RIGHT parietal bone. Procedure Note Felix Marquez MD, PhD - 05/03/2025 CT HEAD WITHOUT CONTRAST Referring clinician's provided indication for this examination in [facility]:*Abnormal imaging; 3 cm right parietql bone lesion TECHNIQUE: Multidetector-row CT of the head was performed withoutintravenous contrast using tailored dose modulation techniques. Imageswere reconstructed in the axial, coronal, and sagittal planes. COMPARISON: CT HEAD WITHOUT CONTRAST ; MRI BRAIN WITH ANDWITHOUT CONTRAST FINDINGS: Brain Parenchyma: No midline shift, mass effect, parenchymal hemorrhage,or evidence of acute territorial infarct. There are areas of hypodensityin the periventricular white matter, likely a manifestation of chronicsmall vessel disease. Well delineated hypodensities within the RIGHTthalamus, likely chronic lacunar infarct, similar to the most recent priorMRI although more medial meniscus is new compared with prior CT for Ventricular System and Extra-Axial Spaces: Ventricular and sulcalprominence, including bilateral medial temporal lobes, slightly moreprominent on the RIGHT. Basilar cisterns are patent. No hydrocephalus. Osseous and Extracranial Structures: No significant paranasal sinusdisease. No orbital abnormality. Status post bilateral cataract surgery.There is minimal sclerosis in the area of previously seen mild enhancementin the RIGHT parietal bone. IMPRESSION: 1. No CT evidence of acute intracranial hemorrhage, mass-effect or largevascular territory infarct. 2. Chronic lacunar infarcts in the RIGHT thalamus. Howard Lorenzo MD IMG CT HEAD/NECK Final Result * (ABNORMAL) Urine Culture (04/23/2025 3:48 PM EDT) Special Requests None Reflexed from [id number] 04/23/2025 9:06 PM EDT [facility] Urine Culture >100,000 colony forming units per mL MIXED MEDINA (3 OR MORE COLONY TYPES) Culture indicates contamination. Please resubmit if necessary. Group B Streptococci predominate Corrected On: 04/25 AT 0852: Previously Reported as: >100,000 colony forming units per mL BETA HEMOLYTIC STREPTOCOCCUS GROUP B (A) 04/25/2025 8:53 AM EDT [facility] Urine 04/23/2025 3:48 PM EDT 04/23/2025 3:54 PM EDT Howard Lorenzo MD MICROBIOLOGY - GENERAL ORDERA BLES Final Result [address] [address] * (ABNORMAL) Microalbumin/creatinine ratio, random urine (04/23/2025 3:48 PM EDT) URINE MICROALBUMIN 5.0(H) 0 - 2.3 mg/dL [facility] URINE CREATININE 81 mg/dL [facility] MICROALB/CRE RATIO 61.7(H) 0 - 20 mg/g Cre [facility] Urine (Urine) 04/23/2025 3:4 8 PM EDT 04/23/2025 3:54 PM EDT us Howard Lorenzo MD URINE ORDERABLES Final Result Performing Organization Address [facility]/ZIP Co de Phone Number [address] [address] * 25-OH vitamin D (04/23/2025 3:20 PM EDT) 25 OH VIT D (TOTAL) 34 30 - 60 ng/mL [facility] Blood 04/23/2025 3:20 PM EDT 04/23/2025 3:26 PM EDT us Howard Lorenzo MD LAB BLOOD ORDERABLES Final Re sult Performing Organization Address [facility] Co de Phone Number [address] [address] * C-Reactive Protein (04/23/2025 3:20 PM EDT) C REACTIVE PROTEIN <3.0 0.0 - 4.0 mg/L [facility] Blood 04/23/2025 3:20 PM EDT 04/23/2025 3:26 PM EDT us Howard Lorenzo MD LAB BLOOD ORDERABLES Final Re sult Performing Organization Address [facility] [facility]/ZIP Co de Phone Number [address] [address] * Folate (04/23/2025 3:20 PM EDT) FOLIC ACID 12.5 4.2 - 19.9 ng/mL [facility] Blood 04/23/2025 3:20 PM EDT 04/23/2025 3:26 PM EDT us Howard Lorenzo MD LAB BLOOD ORDERABLES Final Re sult Performing Organization Address City/[facility]/ZIP Co de Phone Number [address] [address] * Vitamin B12 (04/23/2025 3:20 PM EDT) VITAMIN B12 508 232 - 1,245 pg/mL [facility] Blood 04/23/2025 3:20 PM EDT 04/23/2025 3:26 PM EDT us Howard Lorenzo MD LAB BLOOD ORDERABLES Final Re sult Performing Organization Address City/[facility]/ZIP Co de Phone Number [address] [address] * (ABNORMAL) Lipid panel (04/23/2025 3:20 PM EDT) HDL 49 mg/dL [facility] Comment: Interpretation <40 mg/dL: Low HDL cholesterol (major risk factor for CHD) Greater than or equal to 60 mg/dL: High HDL cholesterol ( negative risk factor for CHD) HDL - cholesterol is affected by a number of factors, e.g. smoking, excerise, hormones, sex and age. CHOLESTEROL 261(H) 0 - 240 mg/dL [facility] TRIGLYCERIDES 164(H) 30 - 160 mg/dL [facility] LDL 179(H) 50 - 129 mg/dL [facility] Comment: LDL levels in terms of risk for coronary heart disease: <100 mg/dL: Optimal 100-129 mg/dL: Near or above optimal 130-159 mg/dL: Borderline high 160-189 mg/dL: High >190 mg/dL: Very High CARDIAC RISK RATIO 5.3(H) 3.3 - 4.4 C [facility] Blood 04/23/2025 3:20 PM EDT 04/23/2025 3:26 PM EDT us Howard Lorenzo MD LAB BLOOD ORDERABLES Final Re sult Performing Organization Address City/[facility]/ZIP Co de Phone Number [address] [address] * DIABETES EYE EXAM FOR RESULT ENTRY ONLY (05/10/2024 3:56 PM EDT) Historical Provider HEALTH MAINTENANCE Edited Result - Final * HM DEXA SCAN (03/11/2023) Howard Lorenzo MD HEALTH MAINTENANCE Edited Res ult - Final from Last 3 Months or Most Recently Relevant to Health Maintenance Insurance MEDICARE PART A & B MEDICARE SUPPLEMENT MEDICARE PART A & B [facility] MEDICARE SUPPLEMENT MEDICARE PART A & B [facility] [place] MED[facility] SUPPLEMENT MEDICARE PART A & B MEDICARE SUPPLEMENT MEDICARE PART A & B MEDICARE SUPPLEMENT MEDICARE PART A & B MEDICARE SUPPLEMENT MEDICARE PART A & B MEDICARE SUPPLEMENT MEDICARE PART A & B MEDICARE SUPPLEMENT MEDICARE PART A & B [facility] MEDICARE SUPPLEMENT Care Teams Foundry Worker Apprentice Relationship Specialty Start Date End Date Howard Lorenzo MD [address] [place] [address] [email or web address] PCP - General Internal Medicine 09/13/17 Howard Lorenzo MD [address] [place] [address] [email or web address] Insurance Assigned Provider 01/29/24 Anibal Cortes DPM [address] [place] [address] Podiatry 04/29/20 Maddi Dinh OD [address] [place] [address] Optometry 04/29/20 Abiola Cedeño MD [address] [facility], 1st [place] [address] [email or web address] Internal Medicine 12/14/22 Additional Source Comments The information contained in this document represents components of the legal health record. It is not the complete legal health record.[facility]
--- OUTSIDE RECORDS SUMMARY | 2025-07-24 13:43 | XMS_ITS | Encounter Summary ---
Author Organization [facility] Address [facility] [address] [address] Phone Care Team Providers Care Component Assembler Supervisor Name Role Phone Howard Lorenzo MD Unavailable [phone] Howard Lorenzo MD Primary Care Provider [phone] Sophia Steve DPM, Erik Unavailable [phone] Maddi Dinh OD Unavailable Abiola Cedeño MD Unavailable [phone] Encounter Details Date Type Department Care Team (Late st Contact Info) Description 02/29/2024 Procedure Pass [facility], Ct Scan - [address] [address] Social History Tobacco Use Types Packs/Day Years [...] Info) Description 09/29/2025 1:30 PM EST Appointment [address] [address] Howard Lorenzo MD [address] [place] [address] [email or web address] 11/14/2025 1:30 PM EST Office Visit [facility] Internal Medicine [address] [place] [address] Howard Lorenzo MD 40 [place] [address] 11/15/2025 12:30 PM EST Office Visit [facility] [address] [place] [address] Leonora Ro CNP [address] [facility], 1st [place] [address] [email or web address] 03/11/2026 2:00 PM EDT Office Visit [facility] Endocrinology [place] 40 [place] [address] Carline Chavez MD [address] [address] documented as of this encounter Visit Diagnoses Not on filedocumented in this encounter Additional Health Concerns Infection Onset Date Last Indicated Resolved Time CoV-Risk 04/28/2024 04/28/2024 05/09/2024 1:22 AM EDT Assessment Noted Time PHQ-2 Depression Total Score: 0 01/27/20 2:32 PM EDT documented as of this encounter Care Teams Component Assembler Supervisor Relationship Specialty Start Date End Date Howard Lorenzo MD [address] [place] [address] PCP - General Internal Medicine 09/13/17 Howard Lorenzo MD [address] [place] [address] Insurance Assigned Provider 01/29/24 Anibal Cortes DPM [address] [place] [address] Podiatry 04/29/20 Maddi Dinh OD [address] [place] [address] Optometry 04/29/20 Abiola Cedeño MD [address] [place] [address] [email or web address] Internal Medicine 12/14/22 documented as of this encounter Additional Source Comments The information contained in this document represents components of the legal health record. It is not the complete legal health record.[facility]
--- OUTSIDE RECORDS SUMMARY | 2025-07-24 13:43 | XMS_ITS | Encounter Summary ---
Author Organization [facility] Address [facility] [employer] [address] [address] Phone Care Team Providers Care Suggestion Clerk Name Role Phone Howard Lorenzo MD Unavailable [phone] Howard Lorenzo MD Primary Care Provider [phone] Sophia Steve DPM, Erik Unavailable [phone] Maddi Dinh OD Unavailable Abiola Cedeño MD Unavailable [phone] Encounter Details Date Type Department Care Team (Late st Contact Info) Description 04/24/2025 Procedure Pass [facility], Ct Scan - [address] [address] Social History Tobacco Use Types Packs/Day Years [...] Info) Description 09/29/2025 1:30 PM EST Appointment [facility], [address] [address] Howard Lorenzo MD [address] [place] [address] 11/14/2025 1:30 PM EST Office Visit [facility] Internal Medicine [address] [place] [address] Howard Lorenzo MD 40 [place] [address] 11/15/2025 12:30 PM EST Office Visit [facility] 22 [place] [address] Leonora Ro CNP 22 [facility], [address] [place] [address] 03/11/2026 2:00 PM EDT Office Visit [facility] Endocrinology [place] [address] [place] [address] Carline Chavez MD [address] [place] [address] documented as of this encounter Visit Diagnoses Not on filedocumented in this encounter Additional Health Concerns Assessment Noted Time PHQ-9 Depression Total Score: 15 025 2:01 PM EDT PHQ-2 Depression Total Score: 5 04/23/20 25 2:01 PM EDT documented as of this encounter Care Teams Suggestion Clerk Relationship Specialty Start Date End Date Howard Lorenzo MD 40 [place] [address] PCP - General Internal Medicine 09/13/17 Howard Lorenzo MD [address] [place] [address] Insurance Assigned Provider 01/29/24 Anibal Cortes DPM [address] [place] [address] Podiatry 04/29/20 Maddi Dinh OD [address] [place] [address] Optometry 04/29/20 Abiola Cedeño MD [address] [address] Internal Medicine 12/14/22 documented as of this encounter Additional Source Comments The information contained in this document represents components of the legal health record. It is not the complete legal health record.[facility]
--- OUTSIDE RECORDS SUMMARY | 2025-07-24 13:43 | XMS_ITS | Encounter Summary ---
Author Organization [facility] Address [facility] [address] [address] Phone Care Team Providers Care Manager Outreach Name Role Phone Howard Lorenzo MD Unavailable Howard Lorenzo MD Primary Care Provider [phone] Sophia Steve DPM, Erik Unavailable [phone] Maddi Dinh OD Unavailable Abiola Cedeño MD Unavailable [phone] Encounter Details Date Type Department Care Team (Late st Contact Info) Description 02/29/2024 Procedure Pass [facility], Ct Scan - [address] [address] Social History Tobacco Use Types Packs/Day Years [...] Info) Description 09/29/2025 1:30 PM EST Appointment [address] [address] Howard Lorenzo MD [address] [place] [address] [email or web address] 11/14/2025 1:30 PM EST Office Visit [facility] Internal Medicine [address] [place] [address] Howard Lorenzo MD 40 [place] [address] 11/15/2025 12:30 PM EST Office Visit [facility] [address] [place] [address] Leonora Ro CNP 22 [facility], 1st [place] [address] 03/11/2026 2:00 PM EDT Office Visit [facility] Endocrinology [place] 40 [place] [address] Carline Chavez MD [address] [address] documented as of this encounter Visit Diagnoses Not on filedocumented in this encounter Additional Health Concerns Infection Onset Date Last Indicated Resolved Time CoV-Risk 04/28/2024 04/28/2024 05/09/2024 1:22 AM EDT Assessment Noted Time PHQ-2 Depression Total Score: 0 01/27/20 2:32 PM EDT documented as of this encounter Care Teams Manager Outreach Relationship Specialty Start Date End Date Howard Lorenzo MD [address] [place] [address] PCP - General Internal Medicine 09/13/17 Howard Lorenzo MD [address] [place] [address] Insurance Assigned Provider 01/29/24 Anibal Cortes DPM [address] [place] [address] Podiatry 04/29/20 Maddi Dinh OD [address] [place] [address] Optometry 04/29/20 Abiola Cedeño MD [address] [place] [address] [email or web address] Internal Medicine 12/14/22 documented as of this encounter Additional Source Comments The information contained in this document represents components of the legal health record. It is not the complete legal health record.[facility]
--- OUTSIDE RECORDS SUMMARY | 2025-07-24 13:43 | XMS_ITS | Patient Health Record ---
Author Organization [facility] Address [address] [facility] [place] [address] Care Team Providers Care Biscuit Machine Operator Name Role Phone Howard Lorenzo MD Primary Care Provider Anibal Scott Unavailable [phone] Allergies Allergen (clinical drug ingredient) Drug/Non Drug Allergy documented on EMR Reaction Allergy Type Onset Date Status sulfamethoxazole / trimethoprim Bactrim Unknown Drug Allergy Active ciprofloxacin Cipro Unknown Drug Allergy Act justice Levaquin Unknown Drug Allergy Active sulfa Unknown Drug Allergy Active Reason For Referral No Information Medications Medication SIG (Take, Route, Frequency, Duration) Notes Start Date End Date Status Extra Depth Orthopedic Shoes (1 Pair) with Customized Heat Molded Multidensity Innersoles (3 Pair) as directed Dx: NIDDM/Polyneuropathy (E11.42), Hammertoe Foot Deformity (M20.41,M20.42), Preulcerative Skin Lesion(s) (L85.1 04/16/2020 Active Aspir-81 81 MG 1 tablet Orally Once a day 03/09/2017 Active glipiZIDE 5 MG 1 tablet Orally Once a day 03/09/2017 Active Losartan Potassium A ctive Crestor Active NovoFine Active Vitamin D 2000 UNIT 1 tablet Orally Once a day 03/09/2017 Active Extra Depth Orthopedic Shoes (1 Pair) with Customized Heat Molded Multidensity Innersoles (3 Pair) as directed Dx: NIDDM (E11.9), Hammertoe Foot Deformity (M20.41,M20.42), Preulcerative Skin Lesion(s) (L85.1) Active Azithromycin 250 MG TAKE 2 TABLETS BY [facility] TODAY, THEN TAKE 1 TABLET DAILY FOR 4 DAYS Oral; Duration: 5 Not-Taking Meloxicam Not-Taking Immunizations Vaccine Route Administration Date Status Comme nts Influenza Unknown 04/15/2018 Refused Social History Tobacco Use: Social History Observation Description Date Details (start date - stop date) Former Smoker NA - NA Tobacco Use/Smoking Question Answer Notes Are you a: former smoker When did you start smoking? 1964 When did you stop smoking? 1989 Additional Findings: Tobacco Non-User Current no n-smoker Alcohol Screen Question Answer Notes Did you have a drink containing alcohol in the p ast year? No Points 0 Interpretation Negative Tobacco use other than smoking: Question Answer Notes Are you an other tobacco user? No Problems Problem Type SNOMED Code ICD Code Onset Dates Problem Status W/U Status Risk Notes Problem Polyneuropathy due to type 2 diabetes mellitus (944905910) Type 2 diabetes mellitus with diabetic polyneuropathy (E11.42) Active confirmed Plan Of Treatment No Information Insurance Providers Payer Name Payer Address Payer Phone Subscriber Number Group Number Insured Name Patient Relationship to Insured Coverage Start Date Coverage End Date Medicare National Govt S[employer] [address] [place] [address] [id number] Vida Bass Self - patient is the insured [facility] [address] [place] [id number] Vida Bass Self - patient is the insured Medical (General) History Medical History History ICD Code Back,Hip,and Knee pain Diabetic Measles Chicken pox CAD Surgical History Surgery Date(Month/Year)
--- OUTSIDE RECORDS SUMMARY | 2025-07-24 13:44 | XMS_ITS | Encounter Summary ---
Author Organization [facility] Address [facility] [employer] [address] [address] Phone Care Team Providers Care Nursing Techn Name Role Phone Howard Lorenzo MD Unavailable [phone] Howard Lorenzo MD Primary Care Provider [phone] Sophia Steve DPM, Erik Unavailable Maddi Dinh OD Unavailable Abiola Cedeño MD Unavailable [phone] Encounter Details Date Type Department Care Team (Late st Contact Info) Description 03/30/2024 Procedure Pass [facility], Ct Scan - [address] [address] Social History Tobacco Use Types Packs/Day Years [...] Info) Description 09/29/2025 1:30 PM EST Appointment [address] [address] Howard Lorenzo MD [address] [place] [address] 11/14/2025 1:30 PM EST Office Visit [facility] Internal Medicine [address] [place] [address] Howard Lorenzo MD 40 [place] [address] 11/15/2025 12:30 PM EST Office Visit [facility] [address] [place] [address] Leonora Ro CNP 22 [facility], 1st [place] [address] 03/11/2026 2:00 PM EDT Office Visit [facility] Endocrinology [place] [address] [place] [address] Carline Chavez MD [address] [address] documented as of this encounter Visit Diagnoses Not on filedocumented in this encounter Additional Health Concerns Infection Onset Date Last Indicated Resolved Time CoV-Risk 04/28/2024 04/28/2024 05/09/2024 1:22 AM EDT Assessment Noted Time PHQ-2 Depression Total Score: 0 01/27/20 2:32 PM EDT documented as of this encounter Care Teams Nursing Techn Relationship Specialty Start Date End Date Howard Lorenzo MD [address] [place] [address] PCP - General Internal Medicine 09/13/17 Howard Lorenzo MD [address] [place] [address] Insurance Assigned Provider 01/29/24 Anibal Cortes DPM [address] [place] [address] Podiatry 04/29/20 Maddi Dinh OD [address] [place] [address] Optometry 04/29/20 Abiola Cedeño MD [address] [place] [address] [email or web address] Internal Medicine 12/14/22 documented as of this encounter Additional Source Comments The information contained in this document represents components of the legal health record. It is not the complete legal health record.[facility]
--- OUTSIDE RECORDS SUMMARY | 2025-07-24 13:44 | XMS_ITS | Patient Health Record ---
Author Organization [facility] Address [address] [place] [address] Care Team Providers Care Stone And Plate Preparer Apprentice Name Role Phone oHward Lorenzo MD Primary Care Provider Rg Mujica Jr Unavailable Allergies Allergen (clinical drug ingredient) Drug/Non Drug Allergy documented on EMR Reaction Allergy Type Onset Date Status hydroxychloroquine Plaquenil Unknown Drug Allergy Active lisinopril Lisinopril Unknown Drug Allergy Activ e atorvastatin Lipitor Unknown Drug Allergy Acti ve Glucophage Unknown Drug Allergy Active Sulfa Unknown Drug Allergy Active Reason For Referral No Information Medications Medication SIG (Take, Route, Frequency, Duration) Notes Start Date End Date Status Losartan Potassium 50 MG 1 tablet Orally Once a day Active Levemir 100 UNIT/ML as directed Subcutan eous as directed Active glipiZIDE 10 MG 1 tablet Orally Once a day Active Rosuvastatin Calcium 10 MG 1 tablet Orally Once a day Active Vitamin D 2000 UNIT 1 capsule Orally Onc e a day Active Baby Aspirin 81 1 tab orally once a day Active Immunizations Vaccine Route Administration Date Status Comme nts Influenza Unknown 09/15/2018 Administered Problems Problem Type SNOMED Code ICD Code Onset Dates Problem Status W/U Status Risk Notes Problem 579813809 Colon cancer screening (Z12.11) Active confirmed Problem 485138875 nursing home (current) use of insulin (Z79.4) Active confirmed Problem [id number] emt intermediate (current) use of aspirin (Z79.82) Active confirmed Plan Of Treatment Future Test Test Name Order Date COLONOSCOPY 11/30/2012 COLONOSCOPY 09/22/2018 Insurance Providers Payer Name Payer Address Payer Phone Subscriber Number Group Number Insured Name Patient Relationship to Insured Coverage Start Date Coverage End Date MEDICARE OF [place] [address] [place] [address] [phone] [id number] MISSY MAKI Self - patient is the insured [facility] [address] [facility] [phone] [id number] MISSY MAKI Self - patient is the insured Medical (General) History Medical History History ICD Code colonoscopy 04/13/2008 Polymyalgia rheumatica currently in cyn[place] ssion diabetes mellitus elevated cholesterol benign parathyroid adenoma HTN hx. kidney stones osteopenia urinary incontinence Surgical History Surgery Date(Month/Year) tonsillectomy Thyroid
--- OUTSIDE RECORDS SUMMARY | 2025-07-24 13:44 | XMS_ITS | Encounter Summary ---
Author Organization [facility] Address [address] [place] [address] Phone Care Team Providers Care Metal Cabinet Finisher Name Role Phone Howard Lorenzo MD Unavailable [phone] Howard Lorenzo MD Primary Care Provider [phone] Sophia Steve DPM, Erik Unavailable [phone] Maddi Dinh OD Unavailable Abiola Cedeño MD Unavailable Reason for Referral * Consultation (Within 1 month) - New Request Specialty Diagnoses / Procedures Referred By Marc kirkpatrick Referred To Contact Diagnoses Primary osteoarthritis of both hips Howard Lorenzo MD [address] [place] [address] Phone: tel: fax: [email or web address] Unknown, Unknown, Referral ID Status Reason Start Date Expiration Date V isits Requested Visits Authorized [id number] New Request 07/24/2025 07/23/2026 1 1 Encounter Details Date Type Department Care Team (Late st Contact Info) Description 07/23/2025 Telephone [employer] [facility] Internal Medicine [address] [place], [place] [phone] Howard Lorenzo MD [address] [place] [address] [email or web address] Social History Tobacco Use Types Packs/Day Years [...] PM EDT documented as of this encounter Progress Notes * Rhiannon Mejia - 07/24/2025 12:48 PM EDT Referral, demographics, OV note and xray report faxed to [facility] [phone] . Received fax confirmation of receipt. LVM to notify patient referral was sent * Howard Lorenzo MD - 07/24/2025 12:35 PM EDT Orders isgned * Elizabeth Mullen - 07/23/2025 12:22 PM EDT Patients called in. He states he would like a referral to [facility] for a consult regarding patients hip for a second opinion. Please advise. Referral pended. documented in this encounter Plan of Treatment Upcoming Encounters Date Type Department Care Team (Late st Contact Info) Description 09/29/2025 1:30 PM EST Appointment [address] [address] Howard Lorenzo MD [address] [place] [address] 11/14/2025 1:30 PM EST Office Visit [facility] Internal Medicine [address] [place] [address] Howard Lorenzo MD [address] [place] [address] 11/15/2025 12:30 PM EST Office Visit [facility] [facility] [address] [place] [address] [place] [address] Leonora Ro CNP [address] [facility], 1st [place] [address] 03/11/2026 2:00 PM EDT Office Visit [facility] Endocrinology [place] [address] [place] [phone] Carline Chavez MD [address] [address] [email or web address] Scheduled Referrals Name Type Priority Associated Diagnoses Orde r Schedule External Referral to Orthopedics ([facility] ([facility] Outpatient Referral Routine Primary osteoarthritis of both hips Ordered: 07/24/2025 documented as of this encounter Visit Diagnoses Diagnosis Primary osteoarthritis of both hips- Primary documented in this encounter Additional Health Concerns Assessment Noted Time PHQ-9 Depression Total Score: 15 025 3:51 PM EDT PHQ-2 Depression Total Score: 3 07/20/20 25 3:51 PM EDT documented as of this encounter Care Teams Metal Cabinet Finisher Relationship Specialty Start Date End Date Howard Lorenzo MD [address] [place] [address] [email or web address] PCP - General Internal Medicine 09/13/17 Howard Lorenzo MD [address] [place] [address] [email or web address] Insurance Assigned Provider 01/29/24 Anibal Cortes DPM [address] [place] [address] Podiatry 04/29/20 Maddi Dinh OD [address] [place] [address] Optometry 04/29/20 Abiola Cedeño MD [address] [address] [email or web address] Internal Medicine 12/14/22 documented as of this encounter Additional Source Comments The information contained in this document represents components of the legal health record. It is not the complete legal health record.[facility]
--- OUTSIDE RECORDS SUMMARY | 2025-07-24 13:44 | XMS_ITS | Encounter Summary ---
Author Organization [facility] Address [facility] Immure Records [address] [address] Phone Care Team Providers Care Lyft Driver Name Role Phone Howard Lorenzo MD Unavailable [phone] Howard Lorenzo MD Primary Care Provider [phone] Sophia Steve DPM, Erik Unavailable Maddi Dinh OD Unavailable Abiola Cedeño MD Unavailable [phone] Encounter Details Date Type Department Care Team (Late st Contact Info) Description 07/20/2025 Orders Only [facility] Internal Medicine [address] [place] [address] Provider, MD Wilfredo [address] [place] [address] Social History Tobacco Use Types Packs/Day Years [...] Info) Description 09/29/2025 1:30 PM EST Appointment [address] [address] Howard Lorenzo MD [address] [place] [address] 11/14/2025 1:30 PM EST Office Visit [facility] Internal Medicine [address] [place] [address] Howard Lorenzo MD [address] [place] [address] 11/15/2025 12:30 PM EST Office Visit [facility] Diabetes Center [address] [place] [address] Leonora Ro, DON 22 [facility], 1st [place] [address] [email or web address] 03/11/2026 2:00 PM EDT Office Visit [facility] Endocrinology [place] [address] [place] [phone] Carline Chavez MD [address] [place] [phone] documented as of this encounter Procedures Procedure Name Priority Date/Time Associated Diagnosis Comments OUTSIDE IMAGING Routine 07/20/2025 5:01 PM EDT documented in this encounter Results * Outside Imaging Report Only (07/20/2025 5:01 PM EDT) us Historical Provider MD DE SANTIAGO XR CHEST Final Res ult documented in this encounter Visit Diagnoses Not on filedocumented in this encounter Additional Health Concerns Assessment Noted Time PHQ-9 Depression Total Score: 15 025 3:51 PM EDT PHQ-2 Depression Total Score: 3 07/20/20 25 3:51 PM EDT documented as of this encounter Care Teams Lyft Driver Relationship Specialty Start Date End Date Howard Lorenzo MD [address] [place] [address] PCP - General Internal Medicine 09/13/17 Howard Lorenzo MD [address] [place] [address] Insurance Assigned Provider 01/29/24 Anibal Cortes DPM [address] [place] [address] Podiatry 04/29/20 Maddi Dinh OD [address] [place] [address] Optometry 04/29/20 Abiola Cedeño MD [address] [place] [address], [address] [place] [address] [email or web address] Internal Medicine 12/14/22 documented as of this encounter Additional Source Comments The information contained in this document represents components of the legal health record. It is not the complete legal health record.[facility]
--- OUTSIDE RECORDS SUMMARY | 2025-07-24 13:44 | XMS_ITS | Encounter Summary ---
Author Organization [facility] Address [facility] [address] [address] Phone Care Team Providers Care [employer] Outfit Supervisor Name Role Phone Howard Lorenzo MD Unavailable [phone] Howard Lorenzo MD Primary Care Provider [phone] Sophia Steve DPM, Erik Unavailable [phone] Maddi Dinh OD Unavailable Abiola Cedeño MD Unavailable [phone] Encounter Details Date Type Department Care Team (Late st Contact Info) Description 03/30/2024 Procedure Pass [facility], Ct Scan - [address] [address] Social History Tobacco Use Types Packs/Day Years [...] Info) Description 09/29/2025 1:30 PM EST Appointment [address] [address] Howard Lorenzo MD [address] [place] [address] 11/14/2025 1:30 PM EST Office Visit [facility] Internal Medicine [address] [place] [address] Howard Lorenzo MD [address] [place] [address] 11/15/2025 12:30 PM EST Office Visit [facility] [address] [place] [address] Leonora Ro CNP 22 [facility], 1[address] [place] [address] [email or web address] 03/11/2026 2:00 PM EDT Office Visit [facility] Endocrinology [place] [address] [place] [address] Carline Chavez MD [address] [address] documented as of this encounter Visit Diagnoses Not on filedocumented in this encounter Additional Health Concerns Infection Onset Date Last Indicated Resolved Time CoV-Risk 04/28/2024 04/28/2024 05/09/2024 1:22 AM EDT Assessment Noted Time PHQ-2 Depression Total Score: 0 01/27/20 2:32 PM EDT documented as of this encounter Care Teams [employer] Outfit Supervisor Relationship Specialty Start Date End Date Howard Lorenzo MD [address] [place] [address] PCP - General Internal Medicine 09/13/17 Howard Lorenzo MD [address] [place] [address] Insurance Assigned Provider 01/29/24 Anibal Cortes DPM [address] [place] [address] Podiatry 04/29/20 Maddi Dinh OD [address] [place] [address] Optometry 04/29/20 Abiola Cedeño MD [address] [place] [address] [email or web address] Internal Medicine 12/14/22 documented as of this encounter Additional Source Comments The information contained in this document represents components of the legal health record. It is not the complete legal health record.[facility]
== END 2025-07-24 12:36 | disposition home or self-care (01) ==
LOC: HO.MAMMO 12:35
PROVIDERS: PCP Internal Medicine; Visit Provider Internal Medicine
DX: Z12.31 Encounter for screening mammogram for malignant neoplasm of breast (principal)
CPT/HCPCS: 77063; 77067

== ENCOUNTER → 2025-07-24 13:30 | Outpatient (BNV) | payer MEDICARE, OTHER, SELFPAY | PROVIDERS: PCP Internal Medicine; Visit Provider Internal Medicine | DX: Z12.31 Encounter for screening mammogram for malignant neoplasm of breast (principal) | CPT/HCPCS: 77063; 77067 ==